=== PATIENT | male | born 1955 | race Caucasian/White ===

== ENCOUNTER 2019-06-09 11:19 | Outpatient (CLI) | payer MEDICARE, OTHER, SELFPAY ==
--- NOTE | ~2019-06-09 | XR_ITS ---
EXAMINATION: XR chest 2V DATE: 06/09/2019 11:46 INDICATION: Shortness of breath and cough. TECHNIQUE: Frontal and lateral views of the chest were obtained on 3 radiographs. COMPARISON: Chest 2 views 05/10/2018, chest CT 02/10/2019 FINDINGS: There is mild atelectasis in the lower lung zones. No pleural effusion or pneumothorax. The heart size is normal. There are chronic compression fractures of T4 and T5. There is a chronic burst fracture of T7. IMPRESSION: 1. Mild atelectasis in the lower lung zones. Reviewed, dictated and finalized at location A.
[2019-06-09 11:31] LABS: Basophils Absolute Auto 0.02 K/mm3 (0.00-0.10); Basophils Percent Auto 0.4 % (0.0-1.0); Eosinophils Absolute Auto 0.01 K/mm3 (0.02-0.50); Eosinophils Percent Auto 0.2 % (1.0-6.0); Hematocrit 45.2 % (37.0-46.0); Hemoglobin 15.8 g/dL (12.4-15.3); Immature Granulocyte Absolute 0.03 K/mm3 (0.00-0.00); Immature Granulocyte Percent A 0.6 % (0.0-0.0); Lymphocytes Absolute Auto 1.02 K/mm3 (1.10-4.50); Lymphocytes Percent Auto 20.2 % (18.0-42.0); Mean Corpuscular Hemoglobin 34.3 pg (27.0-31.0); Mean Platelet Volume 9.4 fl (8.7-11.0); Monocytes Absolute Auto 0.51 K/mm3 (0.10-0.90); Monocytes Percent Auto 10.1 % (2.0-11.0); Neutrophils Absolute Auto 3.5 K/mm3 (1.7-7.2); Neutrophils Percent Auto 68.5 % (50.0-70.0); Platelet Count Result 215 K/mm3 (150-420); Red Blood Count 4.61 M/mm3 (4.70-6.10); Red Cell Distribution Width 11.2 % (11.6-14.4)
[2019-06-09 11:54] LABS: Alanine Aminotransferase 79 U/L (16-63); Albumin Level 3.7 g/dL (3.4-5.0); Alkaline Phosphatase 63 U/L (46-116); Anion Gap 12.9 mmol/L (7-16); Aspartate Amino Transferase 42 U/L (15-37); Bilirubin,Total 0.5 mg/dL (0.00-1.00); Blood Urea Nitrogen 9 mg/dL (7-18); Calcium 8.6 mg/dL (8.5-10.1); Carbon Dioxide 27 mmol/L (21-32); Chloride 103 mmol/L (98-108); Estimated Glomerular Filt Rate > 60; Glucose 102 mg/dL (70-99); Osmolality Calculated 286 mOsm/kg (285-295); Potassium 3.9 mmol/L (3.5-5.1); Sodium 139 mmol/L (136-145); Total Protein 7.1 g/dL (6.4-8.2)
== END 2019-06-09 11:20 | disposition home or self-care (01) ==
PROVIDERS: PCP Internal Medicine; Visit Provider Internal Medicine
DX: J44.1 Chronic obstructive pulmonary disease with (acute) exacerbation (principal)
CPT/HCPCS: 36415; 71046; 80053; 85025

== ENCOUNTER 2019-11-28 00:32 | Outpatient (CLI) | payer MEDICARE, OTHER, SELFPAY ==
[2019-11-28 19:29] LABS: SARS-CoV-2 RNA PCR Negative
== END 2019-11-28 00:33 | disposition home or self-care (01) ==
LOC: ANHCOVIDDT 00:32
PROVIDERS: PCP Internal Medicine; Visit Provider Internal Medicine Gastroenterology
DX: Z01.812 Encounter for preprocedural laboratory examination (principal); Z20.828 Contact with and (suspected) exposure to other viral communicable diseases
CPT/HCPCS: 87635; C9803; U0003

== ENCOUNTER 2019-12-01 00:55 | Day surgery (SDC) | payer MEDICARE, OTHER, SELFPAY ==
[2019-11-20 13:40] VITALS: BMI 32.8
[2019-12-01 07:20] VITALS: BP 111/78; PULSE 73; RESP 18; TEMP 36.1; O2SAT 94; BMI 33.7
[2019-12-01] MEDS: LACTATED RINGERS 1,000 ML 150 ML IV CONT (07:33)
--- NOTE | 2019-12-01 08:10 | WPDGICN ---
Assessment and Plan Assessment and plan (1) Family history of colon cancer in father: Code(s): Z80.0 - Family history of malignant neoplasm of digestive organs Status: Acute Assessment and Plan: Because of family history of colon cancer as well as his own personal history of colon polyps surveillance colonoscopy is recommended now it at 5 year intervals in the future. High-fiber diet is advised. Further recommendations may be given after endoscopy. (2) History of colon polyps: Code(s): Z86.010 - Personal history of colonic polyps Status: Acute GI Consult Note Consult date/time: 12/01/19 08:10 HPI: Raz Gomez is a 64 year old male Presents for surveillance colonoscopy. He states his current weight appetite bowel movements are normal. He denies abdominal pain is had no blood in his stools. His family history is significant his father with colon cancer. Patient self is had colon polyps in the past. He has had no recent difficulties. His weight is stable. Review of Systems Review of Systems: All systems reviewed & are unremarkable except as noted in HPI and below Meds Home Medications and Allergies Home Medications Medication Instructions Recorded Confirmed Type albuterol sulfate 2 puff INHALATION BID 11/20/19 11/20/19 History carvedilol 6.25 mg PO BID 11/20/19 11/20/19 History ltxytgoqoyf-zntfgdavg-kzvspkrr 1 inh INHALATION DAILY 11/20/19 11/20/19 History [Trelegy Ellipta] rosuvastatin 40 mg PO DAILY 11/20/19 11/20/19 History tiotropium bromide [Spiriva with 18 mcg INHALATION DAILY 11/20/19 12/01/19 History HandiHaler] Allergies Allergy/AdvReac Type Severity Reaction Status Date / Time No Known Allergies Allergy Unknown Unverified 12/01/19 07:18 Vital Signs Vital Signs - 24 hr 12/01/19 07:20 Temperature 97 F L Pulse Rate 73 Respiratory Rate 18 Blood Pressure 111/78 Pulse Oximetry 94 Exam Narrative: Exam Narrative: Physical exam reveals patient to be alert. Vital signs stable. HEENT exam unremarkable. Lungs are clear to auscultation and percussion. Heart is without murmur or extra sounds. Abdominal exam reveals multiple scars. She has ventral hernia palpable. Extremities are without clubbing cyanosis or edema. Digital external rectal exam normal.
--- NOTE | 2019-12-01 08:25 | WPDANESEPPF ---
Anes - Initial Pre Proc Eval Procedure: Operation Date: 12/01/19 08:30 Proposed Procedures p Screening Colonoscopy - Stefan Ceballos MD Date/Time: 12/01/19 08:25 Surgeon: Stefan Ceballos MD Pre Op Diagnosis: Hx Colon Polyps/ Fam Hx Colon Ca Patient Data Age: 64 Gender: M Height: 6 ft 4 in Weight: 125.7 kg Last Vital Signs Temp 97 F L 12/01/19 07:20 Pulse 73 12/01/19 07:20 Resp 18 12/01/19 07:20 BP 111/78 12/01/19 07:20 Pulse Ox 94 12/01/19 07:20 Allergies Allergy/AdvReac Type Severity Reaction Status Date / Time No Known Allergies Allergy Unknown Unverified 12/01/19 07:18 Home Medications Medication Instructions Recorded Confirmed Type albuterol sulfate 2 puff INHALATION BID 11/20/19 11/20/19 History carvedilol 6.25 mg PO BID 11/20/19 11/20/19 History maxcilccbzc-xhvlnecal-rjpbowtx 1 inh INHALATION DAILY 11/20/19 11/20/19 History [Trelegy Ellipta] rosuvastatin 40 mg PO DAILY 11/20/19 11/20/19 History tiotropium bromide [Spiriva with 18 mcg INHALATION DAILY 11/20/19 12/01/19 History HandiHaler] Patient hx anesthesia problems: none Family hx anesthesia problems: none PMFSH Past Medical History Medical History (Updated 12/01/19 @ 08:25 by Tristen Aguilar MD) CAD (coronary artery disease) had cardiac cath that revealed blockages; managed with medications no stents COPD (chronic obstructive pulmonary disease) Hyperlipidemia Obesity Anes - Eval Final PreProcedure Day of Procedure 12/01/19 08:25 Patient weight: obese Heart: regular rate and rhythm Lungs: clear to auscultation Airway: Mallampati scale class II Neurological: alert and oriented Last oral intake: >/= 8 hours ASA classification: III Emergent: no Anesthetic plan: proceed Anesthesia type and monitoring: general GIVS and standard monitoring Informed Consent: The patient's anesthetic plan and its attendant risks and benefits were discussed with the patient/family/POA. Questions were solicited and answers provided to the satisfaction of the patient/family/POA.
[2019-12-01 09:04] VITALS: BP 91/67; PULSE 62; RESP 16; O2SAT 97
[2019-12-01 09:14] VITALS: BP 101/65; PULSE 59; RESP 18; O2SAT 98
[2019-12-01 09:24] VITALS: BP 100/71; PULSE 60; RESP 20; O2SAT 98
== END 2019-12-01 09:39 | disposition home or self-care (01) ==
PROVIDERS: PCP Internal Medicine; Visit Provider Internal Medicine Gastroenterology
PROC: 0DJD8ZZ Inspection of Lower Intestinal Tract, Via Natural or Artificial Opening Endoscopic (ICD-10-PCS; CPT 45378; principal; 2019-12-01 08:30)
DX: Z12.11 Encounter for screening for malignant neoplasm of colon (principal); D12.3 Benign neoplasm of transverse colon; K64.8 Other hemorrhoids; Z80.0 Family history of malignant neoplasm of digestive organs
CPT/HCPCS: 45385; 88305; J2704; J7120

== ENCOUNTER 2020-03-30 16:22 | Outpatient (CLI) | payer MEDICARE, SELFPAY ==
[2020-03-30 17:25] LABS: SARS-CoV-2 Ag Negative (Negative)
== END 2020-03-30 16:23 | disposition home or self-care (01) ==
LOC: CHSLAB 16:30
PROVIDERS: PCP Internal Medicine; Visit Provider Internal Medicine
DX: Z20.828 Contact with and (suspected) exposure to other viral communicable diseases (principal)
CPT/HCPCS: 87426

== ENCOUNTER 2020-12-23 08:44 | Outpatient (CLI) | payer MEDICARE, OTHER, SELFPAY ==
--- NOTE | ~2020-12-23 | CT_ITS ---
EXAMINATION: CT lung screening DATE: 12/23/2020 09:19 INDICATION: Personal history of tobacco dependence TECHNIQUE: Computed tomography (CT) of the chest was performed without intravenous contrast. The dose -length product was 395.10 mGy-cm. Automated exposure control and iterative reconstruction technique were employed. COMPARISON: CT dated 02/10/2019 FINDINGS: There are nonenlarged mediastinal lymph nodes, likely reactive. There is atherosclerosis of the aorta and coronary arteries. Heart size is normal. No significant pleural or pericardial effusio n. There is mild lower lobe bronchiectasis. There are calcified granulomas in the lung parenchyma. Th ere is emphysema. There is a stable 3 mm left lower lobe nodule. There are stable chronic compression fractures of T4, T5 and T7. There is a stable 8 mm left lower lobe nodule, image 99. There is mucous plugging in the right lower lobe. IMPRESSION: 1. Lung-RADS category 2: Benign appearance or behavior. Continue annual screening with noncontrast lo w-dose chest CT in 12 months. Reviewed, dictated and finalized at location A. IMPRESSION: 1. Lung-RADS category 2: Benign appearance or behavior. Continue annual screeni ng with noncontrast low-dose chest CT in 12 months.
== END 2020-12-23 08:45 | disposition home or self-care (01) ==
LOC: CHSIMG 08:46
PROVIDERS: PCP Internal Medicine; Visit Provider Internal Medicine
DX: Z12.2 Encounter for screening for malignant neoplasm of respiratory organs (principal); Z87.891 Personal history of nicotine dependence
CPT/HCPCS: 71271

== ENCOUNTER 2022-02-07 12:47 | Outpatient (CLI) | payer MEDICARE, OTHER, SELFPAY ==
--- NOTE | ~2022-02-07 | US_ITS ---
EXAMINATION: US thyroid DATE: 02/07/2022 13:48 INDICATION: Hypothyroidism. TECHNIQUE: Multiple ultrasound images of the thyroid were obtained. COMPARISON: Chest CT 02/07/2022 FINDINGS: The right thyroid lobe measures 5.1 x 2.3 x 1.5 cm. The left thyroid lobe is absent. There is normal echotexture and echogenicity throughout the thyroid gland. No discrete nodules identified. Normal va scular flow is present. IMPRESSION: 1. Normal thyroid. Reviewed, dictated and finalized at location A. STANT STORE MANAGER IMPRESSION: 1. Normal thyroid.
--- NOTE | ~2022-02-07 | CT_ITS ---
EXAMINATION: CT lung screening DATE: 02/07/2022 13:13 INDICATION: Personal history of nicotine dependence, prior smoker with 40 pack year history TECHNIQUE: Computed tomography (CT) of the chest was performed without intravenous contrast. The dose -length product (DLP) was 370.99 mGy-cm. Automated exposure control and iterative reconstruction tech [employer] were employed. COMPARISON: 12/23/2020 FINDINGS: There is moderate emphysema. There is a 4 mm nodule of the left upper lobe on image 39 not definitely identified on the comparison examination. There are stable nodules measuring 7 mm and 4 mm in the left lower lobe. There are mild atelectasis of the right lower lobe. Areas of chronic bronchi al wall thickening and mucous plugging are also noted in the right lower lobe. No pleural effusion or pneumothorax. No pathologically enlarged thoracic lymph nodes are identified. The heart size is norm al. Calcified coronary artery atherosclerosis is noted. Chronic compression fractures of T4, T5, and T7 are present without significant change. IMPRESSION: 1. Lung-RADS category 3: Probably benign. Followup with noncontrast low-dose chest CT in 6 months is recommended. Reviewed, dictated and finalized at location B. NESS ANALYTICS ANALYST IMPRESSION: 1. Lung-RADS category 3: Probably benign. Followup with noncontrast low-dose ch est CT in 6 months is recommended.
== END 2022-02-07 12:48 | disposition home or self-care (01) ==
LOC: CHSIMG 12:49
PROVIDERS: PCP Internal Medicine; Visit Provider Internal Medicine
DX: Z12.2 Encounter for screening for malignant neoplasm of respiratory organs (principal); Z87.891 Personal history of nicotine dependence; E03.9 Hypothyroidism, unspecified
CPT/HCPCS: 71271; 76536

== ENCOUNTER 2022-04-13 14:11 | Inpatient (IN) | payer MEDICARE, OTHER, SELFPAY ==
[2022-04-13] VITALS (34 sets, daily range): BP systolic 91–137; BP diastolic 64–95; PULSE 76–216; RESP 11–34; TEMP 36.4–36.9; O2SAT 97–100; BMI 39.6
--- NOTE | ~2022-04-13 | CT_ITS ---
EXAMINATION: CTA chest PE protocol DATE: 04/13/2022 16:02 INDICATION: Left arm and chest pain, tachycardia, shortness of breath TECHNIQUE: Computed tomography angiography (CTA) of the chest was performed with 100 mL Omnipaque-350 intravenous contrast timed to evaluate the pulmonary arteries. Coronal maximum intensity projection 3D-reconstructions were created by the technologist. Automated exposure control and iterative reconst ruction technique were employed. Exam dose: 970.17 mGy-cm total exam DLP. COMPARISON: 02/07/2022 CT lung screening FINDINGS: There is diagnostic contrast enhancement of the pulmonary arteries and no evidence of pulmo nary embolism. No thoracic aortic aneurysm is noted. No hilar or mediastinal mass lesion or lymphadenopathy. Normal heart size. No pericardial or pleural effusion. The left lobe of the thyroid gland appears to be absent. The right lobe appears unremarkable. Foramen of Morgagni defect containing liver, stomach and fat. There is discoid atelectasis and/or scarring at the lung bases, most prominent at the right lower lob e. 3 mm and 7 mm left lower lobe pulmonary nodules. Moderate emphysematous change of the lungs. Mild compression fracture deformity of T4, moderate compression fracture deformity at T5 and more sev ere compression fracture deformity of T7. IMPRESSION: No evidence of pulmonary embolism Emphysema 7 and 3 mm left lower lobe lung nodules Compression fractures of thoracic spine Reviewed, dictated and finalized at [facility]. Reviewed, dictated and finalized at [facility]. BOSS
--- NOTE | 2022-04-13 14:14 | ED.GENADULT ---
HPI - General Adult General Chief complaint: Arrhythmia/Palpitations Stated complaint: svt Time Seen by Provider: 04/13/22 14:12 History of Present Illness HPI narrative: 66-year-old male with history of coronary disease, COPD high cholesterol obesity presenting the emergency department for evaluation of a rapid heart rate. Patient reports approximately 1.5 hours prior to arrival he was walking downstairs when he had onset of a rapid heart rate. Patient did call EMS for this. He admits that he has a rapid heart rate that appeared regular with a heart rate of 220. Upon arrival to emergency room and patient was converted back to normal sinus using a modified Valsalva. Patient reports that he did have a previous cardiac cath in August 2020 showing multiple areas of stenosis that they decided to manage medically. This was done at [facility]. Patient has last seen his nitrator operator on May 2021. Patient reports a family history of atrial fibrillation denies any prior history of A. fib or SVT per Related Data Home Medications Medication Instructions Recorded Confirmed albuterol sulfate 90 mcg/actuation 2 puff inhalation BID 11/20/19 11/20/19 aerosol inhaler carvedilol 6.25 mg tablet 6.25 mg PO BID 11/20/19 11/20/19 fluticasone fur. 100 mcg-umeclid 1 inh inhalation DAILY 11/20/19 11/20/19 62.5 mcg-vilant 25 mcg inhalat.powder (Trelegy Ellipta) rosuvastatin 40 mg tablet 40 mg PO DAILY 11/20/19 11/20/19 tiotropium bromide 18 mcg capsule 18 mcg inhalation DAILY 11/20/19 12/01/19 with inhalation device (Spiriva with HandiHaler) Allergies Allergy/AdvReac Type Severity Reaction Status Date / Time No Known Allergies Allergy Unknown Unverified 12/01/19 07:18 Review of Systems Review of Systems: CONSTITUTIONAL: Denies fever, chills, or sweats. EYES: Denies visual changes, redness, or discharge. ENT: Denies rhinorrhea, congestion, sore throat, or otalgia. CARDIOVASCULAR: See HPI RESPIRATORY: Denies cough or dyspnea. GASTROINTESTINAL: Denies abdominal pain, nausea, vomiting, or diarrhea. GENITOURINARY: Denies dysuria or hematuria. SKIN: Denies rash or itching. MUSCULOSKELETAL: Denies back pain, joint pain, or myalgia. NEUROLOGIC: Denies headache, numbness, or weakness. [facility] Past Medical History Medical History (Updated 12/01/19 @ 08:25 by Tristen Aguilar MD) CAD (coronary artery disease) had cardiac cath that revealed blockages; managed with medications no stents COPD (chronic obstructive pulmonary disease) Hyperlipidemia Obesity Exam Narrative: APPEARANCE: Well appearing, no pain, no distress, well-nourished. HEAD: normocephalic, atraumatic. EYES: PERRLA/EOMI, conjunctivae clear. NOSE: Normal no drainage EARS:TMS clear with good light reflex. THROAT: Pharynx clear, no exudate. NECK: Supple. No adenopathy, no masses. RESPIRATORY: Airway patent, respirations nonlabored. Clear to auscultation bilaterally, no rales, rhonchi, wheezing. CARDIOVASCULAR: SVT and sinus tachycardia ABDOMINAL: Soft, nontender, nondistended, normal bowel sounds MUSCULOSKELETAL: Moves all extremities. Strength/ROM intact, No edema, No calf tenderness. NEURO: Alert. Cranial nerves II through XII intact. Grossly intact SKIN: Warm, dry. Normal Color Course Course Emergency Course: Upon arrival to the ED patient's heart rate was 220 but this was converted to sinus tachycardia using modified Valsalva. Patient was treated with his home dose of Coreg and 2 L of normal saline. Initial repeat EKGs showed sinus tachycardia. Patient's initial troponin was high end of normal. Patient's 3-hour troponin was further elevated at 0.319. 30 EKG was read as A. fib. Patient is to be a very regular atrial tachycardia but no visible P waves. Dr. Patel with cardiology was consulted due to the patient having a bump troponin with known coronary artery disease. To control the patient's rhythm it was decided to start the patient on amiodarone. Patient
--- NOTE | 2022-04-13 14:18 | ECG_ITS ---
Measurements Intervals [place] Rate: 116 P: 40 [place]: 167 QRS: 66 QRSD: 95 T: 29 QT: 300 QTc: 418 Interpretive Statements SINUS TACHYCARDIA BORDERLINE ST-T WAVE ABNORMALITY- ANTEROLAT/INF LEADS BASELINE ARTIFACT- I, II, III ,AVR, AVL, AVF ABNORMAL ECG COMPARED TO ECG 02/10/2019 12:27:[address] NOW PRESENT [address] (T WAVE) DEVIATION NOW PRESENT Electronically Signed On 04-13-2022 14:41:54 CLOTH ROLL WINDER by Toney Patel D.O.
--- NOTE | 2022-04-13 14:21 | PC.NURSE ---
HR decreased after vagal maneuvers by Dr Chauhan
[2022-04-13 14:42] LABS: Basophils Percent Auto 0.5 % (0.2-1.2); Eosinophils Absolute Auto 0.2 K/mm3 (0-0.3); Eosinophils Percent Auto 2.2 % (0-4.4); Hematocrit 43.1 % (42.0-52.0); Immature Granulocyte Absolute 0.05 K/mm3 (0.00-0.031); Immature Granulocyte Percent A 0.6 % (0-0.5); Lymphocytes Absolute Auto 1.28 K/mm3 (0.9-3.2); Lymphocytes Percent Auto 15.6 % (18.3-44.2); Mean Corpuscular HGB Conc 32.5 g/dl (32-36); Mean Corpuscular Hemoglobin 33.2 pg (26-34); Mean Corpuscular Volume 102.1 fl (80-100); Monocytes Absolute Auto 0.5 K/mm3 (0.1-0.6); Monocytes Percent Auto 6.2 % (2.6-8.5); Neutrophils Absolute Auto 6.2 K/mm3 (1.3-6.7); Neutrophils Percent Auto 74.9 % (45.5-73.1); Platelet Count Result 262 k/mm3 (150-375); Red Blood Count 4.22 M/mm3 (4.6-6.20); Red Cell Distribution Width 12.1 % (11.5-14.5); White Blood Count 8.2 K/mm3 (4.5-10.0)
[2022-04-13 14:51] LABS: Alanine Aminotransferase 25 U/L (6-50); Alkaline Phosphatase 60 U/L (38-126); Anion Gap 5 mmol/L (8-16); Aspartate Amino Transferase 28 U/L (17-59); Bilirubin,Total 0.6 mg/dL (0.2-1.3); Blood Urea Nitrogen 10 mg/dL (9-20); Calcium 6.4 mg/dL (8.4-10.2); Carbon Dioxide 20 mmol/L (22-30); Chloride 109 mmol/L (98-107); Estimated CRCL calculation 102 ml/min; Estimated Glomerular Filt Rate > 60; Glucose 103 mg/dL (65-110); Potassium 3.4 mmol/L (3.4-5.0); Sodium 134 mmol/L (137-145)
[2022-04-13 14:53] LABS: INR 1.2; Prothrombin Time 14.3 Seconds (11.1-14.7)
--- NOTE | 2022-04-13 14:59 | ECG_ITS ---
Measurements Intervals [place] Rate: 119 P: 36 [place]: 176 QRS: 60 QRSD: 101 T: 30 QT: 314 QTc: 442 Interpretive Statements SINUS TACHYCARDIA VENTRICULAR PREMATURE COMPLEX BORDERLINE ST-T WAVE ABNORMALITY- ANTEROLAT/INF LEADS ABNORMAL ECG COMPARED TO ECG 04/13/2022 14:08:32 NO SIGNIFICANT CHANGES Electronically Signed On 04-13-2022 15:37:34 MANAGEMENT REP by Toney Patel D.O.
[2022-04-13 15:02] LABS: Troponin I 0.027 ng/mL (0.000-0.034)
[2022-04-13] MEDS: SODIUM CHLORIDE 0.9% IV 1,000 ML 999 ML IV CONT ×2 (17:22)
[2022-04-13] MEDS: carvediloL 6.25 MG TABLET PO (17:40)
[2022-04-13 17:48] LABS: Troponin I 0.319 ng/mL (0.000-0.034)
--- NOTE | 2022-04-13 17:59 | ECG_ITS ---
Measurements Intervals [place] Rate: 118 P: [place]: 0 QRS: 59 QRSD: 96 T: 25 QT: 292 QTc: 410 Interpretive Statements ATYPICAL ATRIAL FLUTTER WITH TWO-TO-ONE CONDUCTION NONSPECIFIC ST SEGMENT CHANGES ABNORMAL ECG COMPARED TO ECG 04/13/2022 14:22:05 A[address] NOW PRESENT ST (T WAVE) DEVIATION NOW PRESENT Electronically Signed On 05-05-2022 14:25:54 PYROTECHNICIAN by Igor Escalante M.D.
--- NOTE | 2022-04-13 18:30 | PM.IMHP ---
H&P: HPI History of Present Illness Date/Time: 04/13/22 18:30 Chief Complaint: Increased heart rate. Narrative: This is a very pleasant 66-year-old male with coronary artery disease noted on cardiac cath in August 2020 treated medically, dyslipidemia, and COPD who presented to the ED via EMS from home for evaluation for increased heart rate. He felt fine when he got up this morning and went downstairs to fetch his coat as he was going out to run errands. He felt winded when he got to the top of the stairs which is not necessarily unusual for him however it took him longer to recover and when he sat down he felt his heart racing. The shortness of breath improved however the palpitations continued and he also reports feeling discomfort in the arm, elbow, and jaw. He denies syncope, near syncope, sweats, nausea, and vomiting. EMS was summoned however it took them over 90 minutes to get him to the hospital. On arrival to ED it looks like he was in SVT with a rate over 200 which improved with modified Valsalva maneuver. His heart rate remains in the low 100s and looks like he is in an atrial tachycardia at this time. He feels much better and is not having any chest discomfort or shortness of breath. His troponins have come back progressively more elevated and he is being admitted in this setting for further evaluation. He states compliance with his home medications and has not missed any doses. He drinks 4 to 5 cups of caffeinated coffee a day but that is not new. He has a handful of alcoholic beverages a week but nothing in excess. He has no known history of thyroid disease. No history or concerns for sleep apnea. Review of Systems Review of Systems: Twelve systems were reviewed and are negative except for as per HPI. [facility] Past Medical History Medical History (Updated 04/13/22 @ 22:32 by Iris Mao PA-C) Chronic obstructive pulmonary disease Coronary artery disease Cardiac catheterization August [address] Perez reportedly showed nonobstructing coronary disease treated medically. Hyperlipidemia Obesity Surgical History Surgical History History of exploratory laparotomy As an infant due to what sounds like infected umbilicus. History of hernia repair History of right knee surgery Removal of foreign body and clean out. Family History Family History Father Hx of CABG Colon cancer CHF (congestive heart failure) Mother Insulin overdose CHF (congestive heart failure) Diabetes mellitus Social History Social History (Updated 04/13/22 @ 22:31 by Iris Mao PA-C) Social History: Surrogate medical decision maker: Code status: Full code. Smoking status: Former smoker Alcohol intake: current Drinks per week: 2 Substance use type: marijuana Lack of Transportation: No Lack of Food: Never True Current Housing: I Have Housing Concerned About Future Housing: No Difficulty Paying Gas/Electric Bills: No Difficulty Paying for Meds: No Currently Unemployed: No Education: Decline to Answer Difficulty w/ Childcare or Family Care: No Spiritual care concerns: No Meds Home Medications and Allergies Home Medications Medication Instructions Recorded Confirmed Type albuterol sulfate 90 mcg/actuation 2 puff inhalation BID 11/20/19 04/13/22 History aerosol inhaler carvedilol 6.25 mg tablet 6.25 mg PO BID 11/20/19 04/13/22 History fluticasone fur. 100 mcg-umeclid 1 inh inhalation DAILY 11/20/19 04/13/22 History 62.5 mcg-vilant 25 mcg inhalat.powder (Trelegy Ellipta) rosuvastatin 40 mg tablet 40 mg PO HS 11/20/19 04/13/22 History aspirin 81 mg tablet,delayed 81 mg PO DAILY 04/13/22 04/13/22 History release cetirizine 10 mg tablet (Zyrtec) 20 mg PO HS 04/13/22 04/13/22 History ibuprofen-diphenhydramine citrate 1 cap PO HS 04/13/22 04/13/22 History 200 mg-3
[2022-04-13] MEDS: AMIODARONE 150 MG/D5W 100 ML 150 MG/100 ML BAG 600 MG IV CONT (18:36)
[2022-04-13] MEDS: AMIODARONE 360 MG/D5W 200 ML 360 MG/200 ML BAG 33.33 MG IV CONT (18:37)
--- NOTE | 2022-04-13 18:57 | PM.CNCAR ---
Assessment and Plan Assessment and plan (1) PSVT (paroxysmal supraventricular tachycardia): Code(s): I47.1 - Supraventricular tachycardia Status: Acute Assessment and Plan: First episode. Vagal maneuver changed rhythm to either sinus or ectopic atrial tachycardia. Check TSH, Mag. Replete potassium. Amiodarone started, will continue for 24 hours. (2) Hypertension: Code(s): I10 - Essential (primary) hypertension Status: Acute Assessment and Plan: Stable. (3) Hyperlipidemia: Code(s): E78.5 - Hyperlipidemia, unspecified Status: Acute Assessment and Plan: On Rosuvastatin. (4) CAD (coronary artery disease): Code(s): I25.10 - Atherosclerotic heart disease of [place] coronary artery without angina pectoris Status: Acute Assessment and Plan: Obtain cath report from [facility] in [place], around 2019. (5) Elevated troponin: Code(s): R77.8 - Other specified abnormalities of plasma proteins Status: Acute Assessment and Plan: This could be due to demand ischemia related to rapid SVT. Give Lovenox 1 mg/kg SQ Q12 hrs and aspirin daily, on Carvedilol. Trend troponin to peak. Obtain echo. History of Present Illness History of Present Illness Consult date/time: 04/13/22 18:57 Reason For Visit: Atrial Tachycardia,Elevated Trop Narrative: 66 yr old man presents to ER by EMS with palpitations. He has a history of CAD, hypertension, dyslipidemia, COPD, former smoking. Reports he was at home and went back upstairs and sat down, then felt rapid heart rate, chest pressure and sob. He called EMS and was brought to ER. He was in rapid SVT at 220 bpm. Valsalva maneuver performed in ER and this restored what appears to be sinus or ectopic atrial tachycardia at 120 bpm. He is in this rhythm currently. No longer having chest pain or sob. Troponin went up to 0.3. Amiodarone drip started to prevent recurrence of SVT and to restore sinus rhythm from ectopic atrial tachycardia. He normally can walk up to 1/2 block and limited by SAUNDERS due to COPD. States he had left heart cath at [facility] in [place] around 2019 and was found to have a distal 80% stenosis, 60% and 40% stenosis. The 80% stenosis was deemed to be very distal and it was decided to not intervene and just treat medically. Review of Systems Review of Systems: All systems reviewed & are unremarkable except as noted in HPI and below Constitutional: Constitutional: Reports as per HPI, Denies chills and Denies fever(s) Cardiovascular: Cardiovascular: Reports as per HPI, Reports chest pain, Reports irregular heart rhythm and Denies leg edema Respiratory: Respiratory: Reports as per HPI, Reports dyspnea and Reports dyspnea on exertion Gastrointestinal: Gastrointestinal: Reports as per HPI and Denies abdominal pain Genitourinary: Genitourinary: Reports as per HPI and Denies dysuria Musculoskeletal: Musculoskeletal: Reports as per HPI Neurologic: Reports as per HPI, Denies dizziness and Denies syncope [facility] Past Medical History Medical History (Updated 04/13/22 @ 19:04 by Toney Patel DO) CAD (coronary artery disease) had cardiac cath that revealed blockages; managed with medications no stents COPD (chronic obstructive pulmonary disease) Hyperlipidemia Obesity Meds Home Medications and Allergies Home Medications Medication Instructions Recorded Confirmed Type albuterol sulfate 90 mcg/actuation 2 puff inhalation BID 11/20/19 11/20/19 History aerosol inhaler carvedilol 6.25 mg tablet 6.25 mg PO BID 11/20/19 11/20/19 History fluticasone fur. 100 mcg-umeclid 1 inh inhalation DAILY 11/20/19 11/20/19 History 62.5 mcg-vilant 25 mcg inhalat.powder (Trelegy Ellipta) rosuvastatin 40 mg tablet 40 mg PO DAILY 11/20/19 11/20/19 History tiotropium bromide 18 mcg capsule 18 mcg inhalation DAILY 11/20/19 12/01/19 History with inhalation device (Spiriva
[2022-04-13 19:20] LABS: Influenza A QL RT-PCR Negative (Negative); Influenza B QL RT-PCR Negative (Negative); RSV RNA, RT-PCR Negative (Negative); SARS-CoV-2 RNA PCR Negative
[2022-04-13] MEDS: POTASSIUM CHLORIDE 20 MEQ TABLET 40 MEQ PO (19:55)
--- NOTE | 2022-04-13 20:12 | ADMGEN ---
This patient, Raz Gomez, was admitted to IMU Room 201-01 at 2011. Patient/family oriented to hospital policies and general routines including ID bracelet, bed and alarms, visiting hours, pain management, procedures, bathroom and other care routines, personal items, smoking policy, room service/diet, and visiting hours. Information on how to activate the Rapid Response Team has been discussed. Patient/Family are encouraged to report perceived risks to care and to ask questions if they do not understand what they are told or what they should do.
[2022-04-13] MEDS: CALCIUM GLUC 1,000 MG/NS 50 ML 1,000 MG/50 ML BAG 100 MG IVPB (20:47)
[2022-04-13] MEDS: ENOXAPARIN 80 MG/0.8 ML SYRINGE 135 MG SUB-Q (20:48)
[2022-04-13 21:35] LABS: Anion Gap 8 mmol/L (8-16); Blood Urea Nitrogen 12 mg/dL (9-20); Calcium 8.9 mg/dL (8.4-10.2); Carbon Dioxide 28 mmol/L (22-30); Chloride 102 mmol/L (98-107); Estimated CRCL calculation 110 ml/min; Estimated Glomerular Filt Rate > 60; Glucose 152 mg/dL (65-110); Potassium 3.9 mmol/L (3.4-5.0); Sodium 138 mmol/L (137-145)
[2022-04-13 21:36] LABS: Magnesium 2.1 mg/dL (1.6-2.3)
[2022-04-13 21:50] LABS: Troponin I 0.617 ng/mL (0.000-0.034)
[2022-04-13 22:25] LABS: Appearance Urine Clear (Clear); Bilirubin Urine Negative (Negative); Blood Urine Negative (Negative); Color Urine Yellow (Yellow); Glucose Urine UA Negative (Negative); Ketones Urine Negative (Negative); Leukocyte Esterase Ur Negative LEU/UL (Negative); Nitrate Urine Negative (Negative); Protein Urine Negative (Negative); Specific Grav Ur <= 1.005 (1.001-1.035); Urobilinogen Urine 0.2 mg/dL (<2.0); pH Urine 5.5 (5.0-9.0)
[2022-04-13 22:33] LABS: Mucus Urine Rare /lpf; RBC Urine 0-2 /hpf (0-2); Squamous Epithelial Cell Urine Rare /hpf (Few); WBC Urine 0-3 /hpf
[2022-04-13 22:38] LABS: Add Urine Microscopic? NO
[2022-04-14] VITALS (25 sets, daily range): BP systolic 102–132; BP diastolic 65–82; PULSE 55–120; RESP 14–22; TEMP 35.8–36.4; O2SAT 93–99
--- NOTE | 2022-04-14 | ECHO_ITS ---
Patient Info Name: Raz Gomez Age: 66 years : 1955 Gender: Male Ht: 74 in Wt: 297 lbs BSA: 2.70 m2 HR: 76 bpm BP: 114 / 73 mmHg Heart Rhythm: Atrial Fibrillation Technical Quality: Poor Exam Date: 04/14/2022 7:38 AM Exam Location: [facility] Patient Status: Inpatient Admit Date: 04/13/2022 Staff Ordering Physician: Toney Patel DO Sales Agent Financial Report Service: Lorie Edward RDCS Attending Provider: Igor Antonio MD Referring Physician: Jorge MOORE; Exam Type: CA echo dop color flow w con Study Info Indications - elevated troponin R07.9 - Chest pain, unspecified Contrast/Agitated Saline Contrast/Ag. Saline: Definity Amount: 3.00 ml Administered By: Lorie Edward RDCS Existing IV Access: Yes IV Access Condition: patent with no signs of infiltration Summary 1. Technically suboptimal study due to poor sonographic images. 2. Left ventricular chamber dimension is normal. 3. Definity contrast administered improved wall motion interpretation. 4. Left ventricular systolic function is normal, estimated at 55-60%. 5. The left ventricular diastolic function is normal. 6. E/e' 8 is minimally elevated. 7. There is mild aortic valve sclerosis. 8. No pulmonary hypertension, estimated pulmonary arterial systolic pressure is 14 mmHg. 9. The aortic root size at the sinus of Valsalva is moderately dilated at 5.0 cm. Prox ascending aorta is normal at 3.5 cm.. 10. Dilated inferior vena cava with >50% collapse upon inspiration consistent with normal right atrial pressure, 10 mmHg. Left Ventricle E/e' 8 is minimally elevated. Definity contrast administered improved wall motion interpretation. Left ventricular chamber dimension is normal. Left ventricular systolic function is normal, estimated at 55-60%. The left ventricular diastolic function is normal. Technically suboptimal study due to poor sonographic images. Right Ventricle Right ventricular systolic function is normal and with normal TAPSE 1.7 cm. Right ventricular chamber dimension is normal. Left Atria Left atrial chamber dimension is normal. Right Atria Right atrial chamber dimension is normal. Aortic Valve The aortic valve is trileaflet. There is mild aortic valve sclerosis. There is no aortic valve stenosis. There is no aortic valve regurgitation. Pulmonic Valve There is no pulmonic regurgitation. Mitral Valve There is no mitral valve stenosis. There is no mitral valve regurgitation. Tricuspid Valve There is no tricuspid valve regurgitation. No pulmonary hypertension, estimated pulmonary arterial systolic pressure is 14 mmHg. Pericardium/Pleural There is no pericardial effusion. Inferior Vena Cava Dilated inferior vena cava with >50% collapse upon inspiration consistent with normal right atrial pressure, 10 mmHg. Aorta The aortic root size at the sinus of Valsalva is moderately dilated at 5.0 cm. Prox ascending aorta is normal at 3.5 cm.. Left Ventricular Outflow Tract Name Value Normal LVOT 2D LVOT Diameter 2.33 cm LVOT Doppler LVOT Peak Gradi
[2022-04-14] MEDS: ROSUVASTATIN 10 MG TABLET 40 MG PO ×2 (00:05→20:48)
[2022-04-14] MEDS: LORATADINE 10 MG TABLET 20 MG PO ×2 (00:06→20:48)
[2022-04-14] MEDS: carvediloL 6.25 MG TABLET PO ×3 (00:07→18:11)
[2022-04-14] MEDS: diphenhydrAMINE HCl CAP 25 MG CAPSULE PO ×2 (00:07→20:47)
[2022-04-14] MEDS: IBUPROFEN 200 MG TABLET PO ×2 (00:08→20:47)
[2022-04-14] MEDS: AMIODARONE 360 MG/D5W 200 ML 360 MG/200 ML BAG 16.67 MG IV CONT ×2 (00:29→13:23)
[2022-04-14 05:49] LABS: Anion Gap 2 mmol/L (8-16); Blood Urea Nitrogen 12 mg/dL (9-20); Calcium 8.4 mg/dL (8.4-10.2); Carbon Dioxide 27 mmol/L (22-30); Chloride 104 mmol/L (98-107); Estimated CRCL calculation 110 ml/min; Estimated Glomerular Filt Rate > 60; Glucose 93 mg/dL (65-110); Magnesium 2.1 mg/dL (1.6-2.3); Potassium 4.1 mmol/L (3.4-5.0); Sodium 133 mmol/L (137-145)
--- NOTE | 2022-04-14 06:40 | ECG_ITS ---
Measurements Intervals [place] Rate: 95 P: NV: 0 QRS: 56 QRSD: 105 T: 31 QT: 369 QTc: 466 Interpretive Statements ATRIAL FLUTTER/TACHYCARDIA EARLY PRECORDIAL R/S TRANSITION ABNORMAL ECG COMPARED TO ECG 04/13/2022 14:22:05 ATRIAL FLUTTER NOW PRESENT Electronically Signed On 04-14-2022 10:42:52 LABEL DRIER by Toney Patel D.O.
--- NOTE | 2022-04-14 08:00 | PM.PNCARD ---
Progress Note: A&P Assessment and Plan (1) PSVT (paroxysmal supraventricular tachycardia): Code(s): I47.1 - Supraventricular tachycardia Status: Acute Assessment and Plan: First episode. Vagal maneuver changed rhythm to either sinus or ectopic atrial tachycardia. Overnight, he went into atrial flutter then atrial fibrillation. [id number] 3. Electrolytes are OK. Mildly low potassium that is repleted. Mag is normal. Amiodarone started, will continue for 24 hours. Hopefully this restores sinus rhythm. Discussed anticoagulation. Will start Xarelto 20 mg in evening with meal. Check apea link and will need outpatient sleep study. (2) Hypertension: Code(s): I10 - Essential (primary) hypertension Status: Acute Assessment and Plan: Stable. (3) Hyperlipidemia: Code(s): E78.5 - Hyperlipidemia, unspecified Status: Acute Assessment and Plan: On Rosuvastatin. (4) CAD (coronary artery disease): Code(s): I25.10 - Atherosclerotic heart disease of [place] coronary artery without angina pectoris Status: Acute Assessment and Plan: Obtain cath report from [facility] in [place], around 2019. (5) Elevated troponin: Code(s): R77.8 - Other specified abnormalities of plasma proteins Status: Acute Assessment and Plan: This could be due to demand ischemia related to rapid SVT. Troponin peaking at 0.62. Stop Lovenox. Continue aspirin daily, Carvedilol and Rosuvastatin. Obtain echo. Subjective Date/time seen: 04/14/22 08:00 Interval history: Denies chest pain or sob. Exam Const: General: cooperative, healthy appearing, comfortable and obese Nutritional Appearance: obese Orientation/consciousness: oriented to person, oriented to place and oriented to time Resp: Auscultation: clear to auscultation bilaterally, no crackles, no rales, no rhonchi and no wheezes Cardio: Rate: regular rate Rhythm: abnormal rhythm Heart sounds: no murmurs Peripheral pulses: dorsalis pedis present Neuro: General: oriented to person, oriented to place and oriented to time Extrem: Right lower extremity: no edema Left lower extremity: no edema Objective Data Vital Signs Vital Signs: Vital Signs - 24 hr 04/13/22 14:17 04/13/22 14:20 04/13/22 14:36 Temperature 98.5 F Pulse Rate 216 H 116 H 216 H Respiratory Rate 34 H 21 H Blood Pressure 137/88 Pulse Oximetry 100 97 Oxygen Delivery 04/13/22 14:34 04/13/22 14:45 04/13/22 14:46 Temperature Pulse Rate 133 H 120 H 120 H Respiratory Rate 26 H 12 16 Blood Pressure 99/80 L Pulse Oximetry 97 97 97 Oxygen Delivery 04/13/22 15:00 04/13/22 15:01 04/13/22 15:02 Temperature Pulse Rate 120 H 120 H 120 H Respiratory Rate 21 H 13 15 Blood Pressure 100/77 Pulse Oximetry 98 99 98 Oxygen Delivery 04/13/22 15:15 04/13/22 15:16 04/13/22 15:17 Temperature Pulse Rate 121 H 121 H 121 H Respiratory Rate 17 13 18 Blood Pressure 91/72 L 122/64 Pulse Oximetry 98 97 97 Oxygen Delivery 04/13/22 17:40 04/13/22 18:36 04/13/22 18:37 Temperature Pulse Rate 120 H 105 H 120 H Respiratory Rate Blood Pressure 124/86 111/92 H Pulse Oximetry Oxygen Delivery 04/13/22 16:27 04/13/22 16:30 04/13/22 16:45 Temperature Pulse Rate 119 H 120 H 120 H Respiratory Rate 15 14 20 Blood Pressure Pulse Oximetry 100 98 99 Oxygen Delivery 04/13/22 17:08 04/13/22 17:23 04/13/22 17:30 Temperature Pulse Rate 120 H 119 H 121 H Respiratory Rate 24 H 30 H 20 Blood Pressure Pulse Oximetry 98 98 Oxygen Delivery 04/13/22 17:31 04/13/22 17:45 04/13/22 17:46 Temperature Pulse Rate 119 H Respiratory Rate 18 Blood Pressure 96/68 L 115/95 H Pulse Oximetry 98 99 100 Oxygen Delivery 04/13/22 18:00 04/13/22 18:01 04/13/22 18:16 Temperature Pulse Rate 117 H 115 H 92 Respiratory Rate 28 H 16 11 L Blood Pressure 118/90 109/85 P
[2022-04-14] MEDS: PERFLUTREN LIPID MICROSPHERES 1.5 ML VIAL DILUTED TO 10 ML TOTAL VOLUME IV PUSH (08:13)
--- NOTE | 2022-04-14 08:13 | IVDEFINITY ---
Prior to administration of IV Definity the patient was educated on the risks and benefits of the imaging enhancing agent including potential adverse side effects. The patient verbalized understanding. Allergies were verified. No exclusion criteria were identified and at least one of the following inclusion criteria were met: 1) physician request, 2) patient technically difficult to image (per the [place] [employer] guidelines of two or more segments not discernable within the apical view), or 3) questionable left ventricular function. ?
[2022-04-14] MEDS: ASPIRIN 81 MG ENTERIC TABLET PO (08:31)
[2022-04-14] MEDS: ALBUTEROL SULFATE (*SP) AEROSOL 1 PUFF 2 PUFF INHALATION ×2 (09:25→21:09)
--- NOTE | 2022-04-14 12:48 | PM.IMPN ---
Progress Note: A&P Assessment and Plan (1) Paroxysmal supraventricular tachycardia: Code(s): I47.1 - Supraventricular tachycardia Status: Acute Assessment and Plan: This is the 1st episode for this patient, modified Valsalva maneuver converted him to a sinus or ectopic atrial tachycardia. Potassium and calcium being replaced. TSH mildly I 5.3. Apnea link with possible sleep apnea. Need outpatient sleep study. Started on amiodarone drip. Noted underlying rhythm to be AFib with RVR. On Xarelto Coreg (2) Elevated troponin: Code(s): R77.8 - Other specified abnormalities of plasma proteins Status: Acute Assessment and Plan: May very well be related to prolonged SVT (at least 90 minutes). He has a history of nonobstructing coronary artery disease however. Catheterization report requested for review. Echocardiogram with EF 55-60% no pulmonary hypertension mild aortic valve sclerosis. Proximal ascending aorta 3.5 cm no other valvular abnormality noted. Started on Lovenox full dose Switched to Xarelto (3) Hypertension: Code(s): I10 - Essential (primary) hypertension Status: Acute Assessment and Plan: Blood pressures were reviewed and they are stable. Continue antihypertensives and monitor closely. (4) Hyperlipidemia: Code(s): E78.5 - Hyperlipidemia, unspecified Status: Acute Assessment and Plan: Continue rosuvastatin 40 mg daily. (5) Chronic obstructive pulmonary disease: Code(s): J44.9 - Chronic obstructive pulmonary disease, unspecified Status: Acute Assessment and Plan: No acute exacerbation. Continue maintenance inhalers. (6) Coronary artery disease: Code(s): I25.10 - Atherosclerotic heart disease of [place] coronary artery without angina pectoris Status: Acute Assessment and Plan: Continue aspirin, beta-karina, statin. (7) Lung nodule: Code(s): R91.1 - Solitary pulmonary nodule Status: Acute Assessment and Plan: 7 and 3 mm left lower lobe lung nodules noted on CT today. Given smoking history this needs to be followed. Subjective Date/time seen: 04/14/22 12:48 Interval history: This is a very pleasant 66-year-old male with coronary artery disease noted on cardiac cath in August 2020 treated medically, dyslipidemia, and COPD who presented to the ED via EMS from home for evaluation for increased heart rate. He felt fine when he got up this morning and went downstairs to fetch his coat as he was going out to run errands. He felt winded when he got to the top of the stairs which is not necessarily unusual for him however it took him longer to recover and when he sat down he felt his heart racing. The shortness of breath improved however the palpitations continued and he also reports feeling discomfort in the arm, elbow, and jaw. He denies syncope, near syncope, sweats, nausea, and vomiting. EMS was summoned however it took them over 90 minutes to get him to the hospital. On arrival to ED it looks like he was in SVT with a rate over 200 which improved with modified Valsalva maneuver. His heart rate remains in the low 100s and looks like he is in an atrial tachycardia at this time. He feels much better and is not having any chest discomfort or shortness of breath. His troponins have come back progressively more elevated and he is being admitted in this setting for further evaluation. He states compliance with his home medications and has not missed any doses. He drinks 4 to 5 cups of caffeinated coffee a day but that is not new.? He has a handful of alcoholic beverages a week but nothing in excess. He has no known history of thyroid disease. No history or concerns for sleep apnea. 04/14/2022: Feeling better. Telemetry reviewed. No chest pain. Denies any shortness of breath. ApneaLink performed last night. AHI 8.5 RI of 10.5 Review of Systems Review of Systems: All systems revie
[2022-04-14] MEDS: RIVAROXABAN 20 MG TABLET PO (18:11)
[2022-04-14] MEDS: AMIODARONE HCL 200 MG TABLET PO (18:11)
[2022-04-14] MEDS: FLUTICASONE/UMECLIDIN/VILANTER 100-62.5-25 MCG ELLIPTA 1 PUFF INHALATION (18:15)
[2022-04-14 22:25] LABS: Total Triiodothyronine (T3) 1.06 NG/ML (0.97-1.69)
[2022-04-15] VITALS (9 sets, daily range): BP systolic 119; BP diastolic 73–80; PULSE 76–120; RESP 18–20; TEMP 35.8–36.5; O2SAT 92–95
--- NOTE | 2022-04-15 04:41 | PC.NURSE ---
patient pulled out iv. will attempt to place new iv.
[2022-04-15 05:21] LABS: Basophils Percent Auto 0.3 % (0.2-1.2); Eosinophils Absolute Auto 0.2 K/mm3 (0-0.3); Eosinophils Percent Auto 2.9 % (0-4.4); Hematocrit 44.8 % (42.0-52.0); Hemoglobin 15.2 g/dL (14.0-18.0); Immature Granulocyte Absolute 0.04 K/mm3 (0.00-0.031); Immature Granulocyte Percent A 0.6 % (0-0.5); Lymphocytes Absolute Auto 1.66 K/mm3 (0.9-3.2); Mean Corpuscular HGB Conc 33.9 g/dl (32-36); Mean Corpuscular Hemoglobin 33.8 pg (26-34); Mean Corpuscular Volume 99.6 fl (80-100); Mean Platelet Volume 10.1 fl (7.4-10.4); Monocytes Absolute Auto 0.5 K/mm3 (0.1-0.6); Monocytes Percent Auto 7.5 % (2.6-8.5); Neutrophils Absolute Auto 4.2 K/mm3 (1.3-6.7); Neutrophils Percent Auto 63.7 % (45.5-73.1); Platelet Count Result 238 k/mm3 (150-375); Red Cell Distribution Width 11.9 % (11.5-14.5); White Blood Count 6.6 K/mm3 (4.5-10.0)
[2022-04-15 05:32] LABS: Alanine Aminotransferase 26 U/L (6-50); Albumin Level 3.9 g/dL (3.5-5.1); Alkaline Phosphatase 68 U/L (38-126); Anion Gap 6 mmol/L (8-16); Aspartate Amino Transferase 27 U/L (17-59); Bilirubin,Total 0.5 mg/dL (0.2-1.3); Blood Urea Nitrogen 12 mg/dL (9-20); Calcium 8.6 mg/dL (8.4-10.2); Carbon Dioxide 25 mmol/L (22-30); Chloride 105 mmol/L (98-107); Estimated CRCL calculation 110 ml/min; Estimated Glomerular Filt Rate > 60; Glucose 91 mg/dL (65-110); Potassium 3.8 mmol/L (3.4-5.0); Sodium 136 mmol/L (137-145)
--- NOTE | 2022-04-15 07:52 | ECG_ITS ---
Measurements Intervals [place] Rate: 84 P: SD: 0 QRS: 60 QRSD: 102 T: 29 QT: 370 QTc: 440 Interpretive Statements ATRIAL FLUTTER/TACHYCARDIA VENTRICULAR PREMATURE COMPLEX EARLY PRECORDIAL R/S TRANSITION ABNORMAL ECG COMPARED TO ECG 04/14/2022 10:34:46 NO SIGNIFICANT CHANGES Electronically Signed On 04-18-2022 13:54:10 WET WASH ASSEMBLER by Toney Patel D.O.
--- NOTE | 2022-04-15 08:02 | PM.PNCARD ---
Progress Note: A&P Assessment and Plan (1) PSVT (paroxysmal supraventricular tachycardia): Code(s): I47.1 - Supraventricular tachycardia Status: Acute Assessment and Plan: First episode. Vagal maneuver changed rhythm to either sinus or ectopic atrial tachycardia. Overnight, he went into atrial fib/flutter. [id number] 3. Electrolytes are OK. Mildly low potassium that is repleted. Mag is normal. Amiodarone IV started, will continue for 24 hours, then stopped. He is still in atrial flutter at 85 bpm. Start Amiodarone 200 mg PO BID. Discussed anticoagulation. Started Xarelto 20 mg in evening with meal. Apea link was positive for MEDINA, and will need outpatient sleep study. May d/c home from cardiology standpoint and f/u with his regular cardiology, Dr. Perez in 1 week. (2) Hypertension: Code(s): I10 - Essential (primary) hypertension Status: Acute Assessment and Plan: Stable. (3) Hyperlipidemia: Code(s): E78.5 - Hyperlipidemia, unspecified Status: Acute Assessment and Plan: On Rosuvastatin. (4) CAD (coronary artery disease): Code(s): I25.10 - Atherosclerotic heart disease of [place] coronary artery without angina pectoris Status: Acute Assessment and Plan: Obtain cath report from [facility] in [place], around 2020, which we have not received. (5) Elevated troponin: Code(s): R77.8 - Other specified abnormalities of plasma proteins Status: Acute Assessment and Plan: This could be due to demand ischemia related to rapid SVT. Troponin peaking at 0.62. Stopped Lovenox. Continue aspirin daily, Carvedilol and Rosuvastatin. 04/14/22 Echo: EF 55-60%, aortic root dilated at 5.0 cm, prox ascending aorta OK at 3.5 ccm. Subjective Date/time seen: 04/15/22 08:02 Interval history: Denies chest pain or sob. Exam Const: General: cooperative, healthy appearing, comfortable and obese Nutritional Appearance: obese Orientation/consciousness: oriented to person, oriented to place and oriented to time Resp: Auscultation: clear to auscultation bilaterally, no crackles, no rales, no rhonchi and no wheezes Cardio: Rate: regular rate Rhythm: regular rhythm and abnormal rhythm Heart sounds: no murmurs Peripheral pulses: dorsalis pedis present Neuro: General: oriented to person, oriented to place and oriented to time Extrem: Right lower extremity: no edema Left lower extremity: no edema Objective Data Vital Signs Vital Signs: Vital Signs - 24 hr 04/14/22 08:21 04/14/22 08:31 04/14/22 09:26 Temperature 96.8 F L Pulse Rate 55 L 83 83 Respiratory Rate 20 22 H Blood Pressure 102/67 Pulse Oximetry 94 Oxygen Delivery 04/14/22 09:27 04/14/22 10:00 04/14/22 09:42 Temperature Pulse Rate 83 87 84 Respiratory Rate 22 H 22 H Blood Pressure Pulse Oximetry Oxygen Delivery 04/14/22 11:47 04/14/22 12:29 04/14/22 13:23 Temperature 96.4 F L Pulse Rate 113 H 97 97 Respiratory Rate 22 H Blood Pressure 128/73 Pulse Oximetry 93 Oxygen Delivery 04/14/22 12:00 04/14/22 12:00 04/14/22 14:00 Temperature Pulse Rate 120 H 120 H 103 H Respiratory Rate 14 Blood Pressure Pulse Oximetry 99 Oxygen Delivery Room Air 04/14/22 16:51 04/14/22 18:11 04/14/22 18:11 Temperature 97.2 F L Pulse Rate 104 H 106 H 107 H Respiratory Rate 20 Blood Pressure 119/73 Pulse Oximetry 98 Oxygen Delivery 04/14/22 16:00 04/14/22 16:00 04/14/22 18:00 Temperature Pulse Rate 106 H 106 H 100 Respiratory Rate 14 Blood Pressure Pulse Oximetry 98 Oxygen Delivery Room Air 04/14/22 20:00 04/14/22 20:00 04/14/22 20:00 Temperature 97.0 F L Pulse Rate 94 94 88 Respiratory Rate 20 20 Blood Pressure 132/82 Pulse Oximetry 96 96 Oxygen Delivery Room Air 04/14/22 22:00 04/14/22 23:44 04/15/22 00:00 Temperature 97.6 F Pulse Rate 89 89 76 Respiratory Rate
[2022-04-15] MEDS: ALBUTEROL SULFATE (*SP) AEROSOL 1 PUFF 2 PUFF INHALATION (08:45)
[2022-04-15] MEDS: FLUTICASONE/UMECLIDIN/VILANTER 100-62.5-25 MCG ELLIPTA 1 PUFF INHALATION (08:45)
[2022-04-15] MEDS: ASPIRIN 81 MG CHEWABLE TABLET PO (09:02)
[2022-04-15] MEDS: AMIODARONE HCL 200 MG TABLET PO (09:02)
[2022-04-15] MEDS: ASPIRIN 81 MG ENTERIC TABLET PO (09:02)
[2022-04-15] MEDS: carvediloL 6.25 MG TABLET PO (09:03)
--- NOTE | 2022-04-15 11:14 | PM.DS ---
DS: Admitting Diagnosis Discharge Date 04/15/2022 Admitting Diagnosis palpitations DS: Discharge Diagnosis Discharge Diagnosis (1) Paroxysmal supraventricular tachycardia: Code(s): I47.1 - Supraventricular tachycardia Status: Acute (2) Elevated troponin: Code(s): R77.8 - Other specified abnormalities of plasma proteins Status: Acute (3) Hypertension: Code(s): I10 - Essential (primary) hypertension Status: Acute (4) Hyperlipidemia: Code(s): E78.5 - Hyperlipidemia, unspecified Status: Acute (5) Chronic obstructive pulmonary disease: Code(s): J44.9 - Chronic obstructive pulmonary disease, unspecified Status: Acute (6) Coronary artery disease: Code(s): I25.10 - Atherosclerotic heart disease of [place] coronary artery without angina pectoris Status: Acute (7) Lung nodule: Code(s): R91.1 - Solitary pulmonary nodule Status: Acute DS: Summary Hospital Course Hospital Course: # Paroxysmal supraventricular tachycardia: This is the 1st episode for this patient, modified Valsalva maneuver converted him to a sinus or ectopic atrial tachycardia /atrial fibrillation. Potassium and calcium being replaced.? TSH mildly high at 5.3.? Apnea link with possible sleep apnea.? Need outpatient sleep study. Started on amiodarone drip for cardiology.? Noted underlying rhythm to be AFib with RVR.? remain and AFib but rate controlled. IV amiodarone switched to oral. Started on Xarelto for anticoagulation Continued on his home dose of Coreg. Follow-up with Cardiology on outpatient basis. Echocardiogram with ejection fraction 55-60% with no pulmonary hypertension mild aortic valve sclerosis. Proximal ascending aorta okay at 3.5 cm no other valvular abnormality. # Elevated troponin: likely related to prolonged SVT (at least 90 minutes). He has a history of nonobstructing coronary artery disease however. Catheterization report requested for review. Echocardiogram with EF 55-60% no pulmonary hypertension mild aortic valve sclerosis.? Proximal ascending aorta 3.5 cm no other valvular abnormality noted.? Started on Lovenox full dose Switched to Xarelto # hypertension: Blood pressures were reviewed and they are stable.? Continue antihypertensives and monitor closely. # hyperlipidemia: Continue rosuvastatin 40 mg daily. # COPD: No acute exacerbation. Continue maintenance inhalers. # coronary artery Disease: Continue aspirin, beta-karina, statin. # lung nodule: 7 and 3 mm left lower lobe lung nodules noted on CT today. Given smoking history this needs to be followed. Subjective Time Spent with Patient Time attestation: Total time spent providing and/or coordinating discharge services: Minutes Exam Narrative: General: Well-developed, nontoxic-appearing male in the semi-Rodney position in bed in no distress. HEENT: PERRL, EOMI. Sclera anicteric. Oral mucosa moist. Several missing teeth. Oropharynx clear. Neck: Supple. No JVD. Respiratory: Lungs are clear to auscultation bilaterally. No respiratory distress Cardiovascular: Irregularly irregular rhythm AFib in telemetry, normal S1-S2. Gastrointestinal: Abdomen is soft, obese, nontender, and nondistended with positive bowel sounds. Skin: Warm and dry. No rash or lesions on limited exam. Extremities: No cyanosis, clubbing, or edema. Radial and pedal pulses intact. Neurological: Alert. Cranial nerves 2-12 are grossly intact. No gross focal deficits to casual conversation. Psychiatric: Pleasant and cooperative with normal mood and affect. Judgment and insight intact. DS: Data Data Completed and Pending Completed studies during hospitalization: Exam Type: ? ? CA echo dop color flow w con Study Info Indications ?? ? - elevated troponin ? ? R07.9 - Chest pain,? unspecified Account #: ? ? [id number] Contrast/Agitated Saline Contrast/Ag. Saline:
== END 2022-04-15 12:10 | disposition home or self-care (01) | DRG 310 ==
LOC: ANHED 14:36 → ANHIMU 18:30
PROVIDERS: Internal Medicine Cardiovascular Disease; Physician Assistant; Admitting Provider Chiropractor; Emergency Provider Emergency Medicine; PCP Internal Medicine; Visit Provider Internal Medicine
DX: I47.1 Supraventricular tachycardia (principal); J43.9 Emphysema, unspecified; E66.9 Obesity, unspecified; E78.5 Hyperlipidemia, unspecified; I10 Essential (primary) hypertension; I25.10 Atherosclerotic heart disease of native coronary artery without angina pectoris; I48.91 Unspecified atrial fibrillation; I48.92 Unspecified atrial flutter; R91.8 Other nonspecific abnormal finding of lung field; Z68.39 Body mass index [BMI] 39.0-39.9, adult; Z87.891 Personal history of nicotine dependence; Z20.822 Contact with and (suspected) exposure to COVID-19
CPT/HCPCS: 36415; 71275; 80048; 80053; 81003; 83735; 84439; 84443; 84480; 84484; 85025; 85610; 85730; 87637; 93005; 94640; 94762; 99285; A9270; C8929; J0282; J0610; J1650; J7030; Q9957; Q9967

== ENCOUNTER 2022-09-05 09:19 | Outpatient (CLI) | payer MEDICARE, OTHER, SELFPAY ==
--- NOTE | ~2022-09-05 | CT_ITS ---
CT Scan of the Chest without Contrast: Clinical Indication: Pulmonary nodule, prior history of melanoma Technique: Contiguous sections were acquired throughout the chest without intravenous contrast. Dose reduction technique was used on this scan by utilizing automated exposure control and iterative recon struction technique. The dose-length product (DLP) was 355.51 mGy-cm. COMPARISON: 04/13/2022 Findings: There is no evidence of any significant mediastinal, hilar or axillary lymphadenopathy. Coronary sathish ry calcifications are present. There are minimal atherosclerotic calcifications of the aorta. There is no evidence of pleural or pericardial effusion. Stable right lower lobe pulmonary nodule adjacent to the fissure (axial image 81). Stable left lower lobe pulmonary nodules (axial image 105, 93). Mild emphysema noted. There is bibasilar scarring or at electatic change. Images through the upper abdomen reveal no abnormalities. Stable compression fractures of T5 and T7 n oted. Impression: Stable pulmonary nodules, as detailed above. Mild emphysema. Stable compression fractures of T5 and T7. Reviewed, dictated and finalized at location . Impression: Stable pulmonary nodules, as detailed above. Mild emphysema. Stable compression fractures of T5 and T7.
== END 2022-09-05 09:20 | disposition home or self-care (01) ==
LOC: CHSIMG 09:21
PROVIDERS: PCP Internal Medicine; Visit Provider Internal Medicine
DX: R91.1 Solitary pulmonary nodule (principal); J43.9 Emphysema, unspecified; M48.54XA Collapsed vertebra, not elsewhere classified, thoracic region, initial encounter for fracture
CPT/HCPCS: 71250

== ENCOUNTER 2023-12-06 10:54 | Outpatient (CLI) | payer MEDICARE, OTHER, SELFPAY ==
--- NOTE | ~2023-12-06 | CT_ITS ---
CT Scan of the Chest without Contrast: Clinical Indication: Pulmonary nodule, history of melanoma Technique: Contiguous sections were acquired throughout the chest without intravenous contrast. Dose reduction technique was used on this scan by utilizing automated exposure control and iterative recon struction technique. The dose-length product (DLP) was 394.43 mGy-cm. COMPARISON: 09/05/2022 Findings: There is no evidence of any significant mediastinal, hilar or axillary lymphadenopathy. Coronary sathish ry calcifications are present. There is no evidence of pleural or pericardial effusion. Moderate to advanced emphysema present. Stable Fissural nodule at the anterior right lung base. Chronic right basilar scarring or atelectasis noted. Stable 5 mm left basilar pulmonary nodule (axial image 105). Stable additional 2 mm left lower lobe pulmonary nodule (axial image 94. Images through the upper abdomen reveal no abnormalities. Stable compression fractures of T5 and T7 n oted. Impression: Stable subcentimeter pulmonary nodules, as above. Moderate to advanced emphysema. Reviewed, dictated and finalized at [facility]. Impression: Stable subcentimeter pulmonary nodules, as above. Moderate to advanced emphysema.
== END 2023-12-06 10:55 | disposition home or self-care (01) ==
PROVIDERS: PCP Internal Medicine; Visit Provider Internal Medicine
DX: R91.8 Other nonspecific abnormal finding of lung field (principal)
CPT/HCPCS: 71250

== ENCOUNTER 2023-12-18 10:04 | Outpatient (CLI) | payer MEDICARE, OTHER, SELFPAY ==
--- NOTE | ~2023-12-18 | XR_ITS ---
EXAMINATION: XR chest 2V DATE: 12/18/2023 10:22 INDICATION: Dyspnea TECHNIQUE: PA and lateral views of the chest were obtained. COMPARISON: Chest CT dated 12/06/2023 FINDINGS: Mild hyperexpansion of lungs with increased lucency in the upper lung zones consistent with emphysema better appreciated on prior CT. Again seen are streaky and bandlike opacities at the bilateral lower lung zones consistent with chronic atelectasis/scarring. No pulmonary edema, pleural effusion or pne umothorax. Heart size is normal. Left pectoral implantable sheet metal operator. Stable appearance of synchro assembler jem compression fractures at T5 and T7. IMPRESSION: 1. 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 No acute cardiopulmonary disease . Reviewed, dictated and finalized at location B. IMPRESSION: 1. 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 No acute c ardiopulmonary disease.
[2023-12-18 10:38] LABS: Basophils Absolute Auto 0.06 K/mm3 (0.00-0.10); Basophils Percent Auto 0.8 % (0.0-1.0); Eosinophils Absolute Auto 0.28 K/mm3 (0.02-0.50); Eosinophils Percent Auto 3.6 % (1.0-6.0); Hematocrit 46.7 % (37.0-46.0); Hemoglobin 15.8 g/dL (12.4-15.3); Immature Granulocyte Absolute 0.04 K/mm3 (0.00-0.00); Immature Granulocyte Percent A 0.5 % (0.0-0.0); Lymphocytes Absolute Auto 1.29 K/mm3 (1.10-4.50); Lymphocytes Percent Auto 16.7 % (18.0-42.0); Mean Corpuscular HGB Conc 33.8 g/dL (32-36); Mean Corpuscular Hemoglobin 33.7 pg (27.0-31.0); Mean Corpuscular Volume 99.6 fL (78.0-102.0); Mean Platelet Volume 10.1 fl (8.7-11.0); Monocytes Absolute Auto 0.59 K/mm3 (0.10-0.90); Monocytes Percent Auto 7.6 % (2.0-11.0); Neutrophils Absolute Auto 5.47 K/mm3 (1.70-7.20); Neutrophils Percent Auto 70.8 % (50.0-70.0); Platelet Count Result 272 K/mm3 (150-420); Red Blood Count 4.69 M/mm3 (4.70-6.10); Red Cell Distribution Width 11.4 % (11.6-14.4); White Blood Count 7.7 K/mm3 (4.8-10.8)
[2023-12-18 10:54] LABS: D Dimer 0.36 mg/L (0.19-0.50)
[2023-12-18 14:27] LABS: NT Pro B Type Natriuretic Pept 76 pg/mL (0-125)
== END 2023-12-18 10:05 | disposition home or self-care (01) ==
LOC: CHSLAB 10:05
PROVIDERS: PCP Internal Medicine; Visit Provider Internal Medicine
DX: R06.00 Dyspnea, unspecified (principal); R91.8 Other nonspecific abnormal finding of lung field
CPT/HCPCS: 36415; 71046; 83880; 85025; 85380

== ENCOUNTER 2025-01-06 07:49 | Outpatient (CLI) | payer MEDICARE, OTHER, SELFPAY ==
--- OUTSIDE RECORDS SUMMARY | 1999-03-11 04:45 | XMS_ITS | Continuity of Care Document ---
Author Organization [facility] Address [address] [place] [address] Phone Care Team Providers Care Solar Thermal Technician Name Role Phone Dennysy, Edward Unavailable Unavailable Advance Directives Directive Yes / No Effective Date File Name No Information Encounters Encounter Description Practice Location Reason(s) For Visit Diagnoses Date Provider Providers Copied on Encounter [facility], [address], [place], [place], [id number], [place] tel:[phone] SEC [facility] No Information Dec-1 0-199 9 Doisy Edward. [address] [facility] , [address], [place], [address], [place]. tel:[phone] Family History Family Member Type Diagnosis Age At Onset No Information Payers Payer name Insurance type Covered green party ID Authoriza timercedez(s) [employer] SOI CI [id number] Social History Type Description Quantity Date Captured Comments Sex Male Smoking Status No Information Chief Complaint And Reason For Visit No Information Reason For Referral Reason For Referral No Information History Of Present Illness Encounter Date Complaint History Of Prese nt Illness No Information Functional Status Date Functional Assessmen t No Information Instructions Date Instruction Additional Infor mation No Information Assessments Type Assessment Date No Information Patient Care Teams Name Effective Dates (start - stop) Status Members No Information
--- NOTE | ~2025-01-06 | US_ITS ---
EXAMINATION: US aorta DATE: 01/06/2025 08:15 INDICATION: Abdominal aortic aneurysm screening risk factors of diabetes, obesity, hypercholesterolemia and prior smoking TECHNIQUE: Grayscale, color Doppler, and pulsed Doppler images of the aorta and common iliac arteries were obtained. COMPARISON: None. FINDINGS: The proximal aorta measures 2.5 cm. The mid aorta measures 2.5 cm. The distal aorta measures 2.5 cm. The right common iliac artery measures 1.8 cm. The left common iliac artery measures 1.8 cm. IMPRESSION: 1. Normal caliber abdominal aorta. Reviewed, dictated and finalized at location A.
--- OUTSIDE RECORDS SUMMARY | 2025-01-06 07:58 | XMS_ITS | Encounter Summary ---
Author Organization [facility] Address [facility] [place] [address] Care Team Providers Care Program Paraprofessional Name Role Phone Maryann Triana MD Primary Care Provider [phone] Miller Perez MD Unavailable [phone] Som Severino MD Unavailable [phone] Keaton Smith MD Unavailable [phone] Machelle Coelho [facility] Unavailable [phone] Encounter Details Date Type Department Care Team (Late st Contact Info) Description 02/07/2023 MyChart Message Enc [facility] [address] [place] [address] Thalia Villalba MD [address] [place] [address] Sleep and Breathing Test Date Social History Tobacco Use Types Packs/Day Years Used Date Smoking Tobacco: Former Cigarettes Q uit: 06/2015 Smokeless Tobacco: Never Alcohol Use Standard Drinks/Week Comments Yes 0 (1 standard drink = 0.6 oz pur e alcohol) 2 per day Sex and Gender Information Value Date Recorded Sex Assigned at Male 12/25/2024 10:46 AM CDT Legal Sex Male 6:43 PM CDT Gender Identity Not on file Sexual Orientation Not on file Occupation Industry Job Start Date Job End Date Retired Not on file Not on file Not on file documented as of this encounter Plan of Treatment Upcoming Encounters Date Type Department Care Team (Late st Contact Info) Description 01/30/2025 2:30 AM CDT Allied Health/Nurse Visit [facility] [address] [place] [phone] oSm Severino MD [address] [place] [address] 05/25/2025 12:00 PM PRODUCT SAFETY PROFESSIONAL [facility] [address] [place] [phone] Machelle Coelho, ANP-BC [address] [place] [address] documented as of this encounter Visit Diagnoses Not on filedocumented in this encounter Care Teams Program Paraprofessional Relationship Specialty Start Date End Date Maryann Triana MD [address] [place] [phone] PCP - General INTERNAL MEDICINE 02/13/19 Miller Perez MD [address] [place] [address] [place] Infection Control Nurse CARDIOVASCULAR DISEASE 02/13/19 07/18/23 Som Severino MD [address] [place] [address] Consulting Physician CLINICAL CARDIAC ELECTROPHYSIOLOGY 05/18/22 Keaton Smith MD [address] [place] [address] INTERVENTIONAL CARDIOLOGY 07/19/2306/06 Machelle Coelho, ANP-BC [address] [place], [place] [id number] Nurse Practitioner NURSE PRACTITIONER ADULT HEALTH 07/19/23 documented as of this encounter
--- OUTSIDE RECORDS SUMMARY | 2025-01-06 07:58 | XMS_ITS | Clinical Summary ---
Author Organization [facility] Address [address] [place] [address] Care Team Providers Care Auto Suspension And Steering Mechanic Name Role Phone Maryann Jamison MD Primary Care Provider [phone] Som Severino MD Unavailable [phone] Machelle Coelho [facility]- Unavailable [phone] Allergies No known active allergies Medications hydrocodone-acet aminophen 5-325 MG tablet Take 1 tablet by mouth every 6 (six) hours as needed. Active fluticasone propionate 50 MCG/ACT nasal spray 1 spray by Nasal route daily. Active triamcinolone 0.1 % cream Apply topically 2 (two) times daily. Active albuterol sulfate HFA 108 (90 Base) MCG/ACT inhaler Inhale 2 puffs into the lungs every 6 (six) hours as needed. Active aspirin EC 81 MG tablet Take 1 tablet (81 mg total) by mouth daily. 90 tablet 3 0 Active TRELEGY 100-62.5-25 MCG/INH AEROSOL POWDER, BREATH ACTIVATED Inhale 1 puff into the lungs daily. 1 Active betamethasone dipropionate augmented (DIPROLENE) 0.05 % ointment as needed. 2 Active calcipotriene (DOVONOX) 0.005 % cream as needed. 2 Active nitroglycerin (NITROSTAT) 0.[address] 1 tablet (0.4 mg total) under the tongue every 5 (five) minutes as needed for Chest Pain. 25 tablet 1 3 Active cetirizine (ZYRTEC) 10 MG tablet Take 1 tablet (10 mg total) by mouth daily. Active Ibuprofen-diphen hydrAMINE Cit (ADVIL PM OR) Take by mouth as needed. Active carvedilol (COREG) 6.25 MG tablet TAKE 1 TABLET TWICE DAILY (NEED MD APPOINTMENT) 180 tablet 2 3 Active OXYGEN CONCENTRATOR SUPPLY, DME,Indications: Centrilobular emphysema ([facility]) Please provide patient with oxygen 2 L/min for activity. Diagnosis emphysema. 1 Device 3 Active OXYGENIndication s:Chronic obstructive pulmonary disease, unspecified COPD type ([facility]),Asthma- COPD overlap syndrome ([facility]),Centril obular emphysema ([facility]) PORTABLE OXYGEN CONCENTRATOR 2L/MIN PER ACTIVITY VIA NASAL CANNULA 1 Device 4 Active CPAP DEVICE, DME,Indications: Obstructive sleep apnea (adult) (pediatric) CPAP pressure 7. Obstructive sleep apnea. G47.33. Patient meets criteria for CPAP therapy with AHI of 5.3 because of breathing difficulties and COPD. Patient needs supplemental oxygen 1 L/min with CPAP. Please provide patient with mask, harness, tubing, filters, heated humidity and all supplies for CPAP machine. X 99 refills 1 Device 4 Active furosemide (LASIX) 20 MG tabletIndication s:Coronary artery disease involving circle coronary artery of circle heart without angina pectoris Take 1 tablet (20 mg total) by mouth daily. In the morning 90 tablet 3 5 Active montelukast (SINGULAIR) 10 MG tabletIndication s:Moderate persistent asthma without complication ([facility]) TAKE 1 TABLET EVERY NIGHT AT BEDTIME 90 tablet 3 5 Active rosuvastatin (CRESTOR) 20 MG tablet Take 1 tablet (20 mg total) by mouth nightly at bedtime. 90 tablet 2 5 Active CPAP DEVICE [place], DME,Indications: Obstructive sleep apnea (adult) (pediatric) Present CPAP pressure 7. Obstructive sleep apnea. G47.33. Please increase CPAP pressure to 8. Please suggest patient CPAP machine to reflect the new settings. 1 Device 5 Active Active Problems Problem Noted Date Diagnosed Date Dependence on supplemental oxygen 06/01/2024 Shortness of breath 12/19/2023 Excessive daytime sleepiness 10/24/2023 Hypoxia 04/21/2023 Implantable loop recorder present 03/20/2023 Obstructive sleep apnea (adult) (pediatric) 04/2022 Moderate persistent asthma without complication ([facility]) 01/31/2023 Asthma-COPD overlap syndrome ([facility]) 1 04/02/2022 MEDINA and COPD overlap syndrome ([facility]) 01/31/2023 Closed fracture of sixth tho racic vertebra with routine healing, unspecified fracture morphology, subsequent encounter 01/31/2023 Atrial flutter ([facility]) 09/20/2022 S/P ablation of atrial flutter 09/20/2022 Coronary artery disease invo lving circle coronary artery of circle heart without angina pectoris 06/07/2019 Family history of early CAD 04/07/2019 COPD (chronic obstructive pu lmonary disease) ([facility]) 04/07/2019 Mixed hyperlipidemia 03/04/2019 Encounters Date Type Department Care Team Description 01/01/2025 Telephone [facility] [address] [place] [address] Machelle Coelho ANP-JOCELYNE Reschedule 12/26/2024 Telephone [facility] [address] [place] [address] Machelle Coelho ANP-JOCELYNE Appointment Request 12/25/2024 10:50 AM CDT - 12/25/2024 11:59 PM CDT Hospital Encounter [facility] [address] [facility] [address] Maryann Jamison MD Discharge Disposition: Home or Self Care (Routine Discharge) 12/25/2024 Travel 12/09/2024 2:15 AM CDT Allied Health/Nurse Visit [facility] [address] [place] [address] Som Severino MD 10/28/2024 1:30 AM CDT Allied Health/Nurse Visit [facility] [address] [place] [address] Som Severino MD 10/23/2024 11:00 AM CDT Office Visit [facility] [address] [place] [address] Thalia Villalba MD Follow Up (Pt is here for a 4 month follow up on shortness of breath and obstructive sleep apnea. ); Shortness Of Breath (Pt uses his oxygen at 2 liters with walking distances. ); Obstructive Sleep Apnea (Pt states he uses his cpap machine all most nightly about 6-10 hours. ) 10/23/2024 [facility] [place] [address] [place] [address] Thalia Villalba MD Advice 10/23/2024 Travel from Last 3 Months Family History Medical History Relation Comments Colon Cancer Father Heart Attack Father 5 vessel CABG Heart Attack Mother Relation Status Comments Father Mother Social History Tobacco Use Types Packs/Day Years Used Date Smoking Tobacco: Former Cigarettes Q uit: 06/2015 Smokeless Tobacco: Never Tobacco Cessation:Counseling Given: Not Answered Alcohol Use Standard Drinks/Week Comments Yes 0 (1 standard drink = 0.6 oz pur e alcohol) 2 per day PHQ-2 Answer Date Recorded Patient Health Questionnaire-2 Score 0 06/14/2023 Sex and Gender Information Value Date Recorded Sex Assigned at Male 12/25/2024 10:46 AM CDT Legal Sex Male 6:43 PM CDT Gender Identity Not on file Sexual Orientation Not on file Occupation Industry Job Start Date Job End Date Retired Not on file Not on file Not on file Last Filed Vital Signs Vital Sign Reading Time Taken Comments Blood Pressure 134/83 10/23/2024 10:56 AM CDT Pulse 62 10/23/2024 10:56 AM CDT Temperature 36.1 C (97 F) 05/18/2022 6:48 AM DOUBLE END TENON OPERATOR Respiratory Rate 16 10/23/2024 10:5 6 AM CDT Oxygen Saturation 95% 10/23/2024 10: 56 AM CDT Inhaled Oxygen Concentration - - Weight 139.6 kg (307 lb 12.8 oz) 2024 10:56 AM CDT Height 193 cm (6' 4) 10/23/2024 10:56 AM CDT Body Mass Index 37.47 10/23/2024 10:56 AM CDT Plan of Treatment Upcoming Encounters Date Type Department Care Team (Late st Contact Info) Description 01/30/2025 2:30 AM CDT Allied Health/Nurse Visit [facility] ld [address] [place] [address] Som Severino MD [address] [place] [address] 05/25/2025 12:00 PM DOUBLE END TENON OPERATOR Office Visit [facility] [place] [address] Machelle Coelho, [facility]- [address] [place] [address] Health Maintenance Due Date Last Done Comments Colorectal Cancer Screening Colonoscopy (10 Years) 1954 Hepatitis C 1972 RSV Immunization or 60+ Years (1 - Risk 60-74 years 1-dose series) 2014 Annual Medicare Wellness Visit 2019 Pneumococcal Vaccine: 50+ Years (2 of 2 - PCV) 09/09/2020 09/10/2019, 04/06/2011 DTaP, Tdap and Td Vaccines (2 - Td or Tdap) 04/06/2021 04/06/2011 PHQ-2 (Physician [place]) 04/02/2024 06/14/2023 ASCVD LDL 09/27/2024 09/28/2023, 12/31, 01/22/2021, Additional history exists COVID-19 Vaccine ( season) 2024 03/22/2021, 2020, 05/07/2020 Influenza Adult (#1) 2024 03/11/2014, 02/29/20 13 Zoster Vaccines Completed 04/08/2018, 08/10/2017, 03/09/2016 AAA SCREENING Completed 12/25/2024 Meningococcal B Vaccine Aged Out No l onger eligible based on patient's age to complete this topic Meningococcal Vaccine Aged Out No eliseo minnie eligible based on patient's age to complete this topic RSV Immunizations Under 20 Months Aged Out No longer eligible based on patient's age to complete this topic Medical Devices Implanted Type Area Complementary Health Therapists Device Identifier Shelf Expiration Date Model / Serial / Lot Medtronic Linq Ii-05/18/2022 Implanted: by Som Severino MD (Quantity not on file) Implantable Loop Recorder [employer] 10/10/2023 [id number] / [id number] / Description:DX: Suspected AF ib Procedures Procedure Name Priority Date/Time Associated Diagnosis Comments CT CHEST WO CON Routine 12/25/2024 11:07 AM CDT Pulmonary nodule LIPID PANEL Routine 09/28/2023 from Last 3 Months or Most Recently Relevant to Health Maintenance Results * CT CHEST WO CON (12/25/2024 11:07 AM CDT) Anatomical Region Laterality Modality Chest Computed Tomogra phy 12/31/2024 3:19 PM CDT Impressions 12/31/2024 3:29 PM CDT IMPRESSION: 1. No acute intrathoracic process identified. 2. Benign pulmonary nodules as described. No specific surveillance is indicated. 3. No evidence of metastatic disease. 4. Coronary artery disease. 5. Centrilobular emphysema. 6. Additional chronic/nonurgent findings as described. Ordered By: MARYANN JAMISON Interpreted By: Victor Manuel Liu MD, 12/31/2024 3:19 PM Narrative 12/31/2024 3:29 PM CDT [address] [place] [address] Examination: CT of the chest without contrast. Exam time: 1107 hours. Clinical history: Follow-up of pulmonary nodules. History of melanoma. Comparison: 12/06/2023, 09/05/2022 ([facility]), coronary calcium screening CT, 03/17/2019 ([facility]). Technique: Spiral scanning was performed through the chest without contrast. Sagittal and coronal reconstructions performed from the data set. A dose lowering technique was used for this procedure, which may include, but is not limited to, dose reduction techniques, automated exposure control, the use of iterative reconstruction and ALARA/Image Gently techniques. Findings: Calcific coronary artery disease and atherosclerotic calcification of the aorta and arch vessels again evident. The heart and great vessels are otherwise unremarkable for the noncontrast technique. No hilar or mediastinal adenopathy is identified. No endobronchial abnormality is identified. Changes of centrilobular emphysema are again evident. Calcified granulomas in the right lower lobe again evident. Scarring in the inferior lingula and bilateral lower lobes, right greater than left, appears similar to 09/05/2022. Perifissural nodule on the right referenced on 09/05/2022 is present since 2019, stable to slightly decreased in size, benign, presumably a granuloma. Sub-6 mm noncalcified nodules in the left lower lobe were not within the field of view in 2019 but are stable since 2022 and are now also judged benign. No new nodules are identified. There is no dominant mass or focal airspace opacity. There is no pleural effusion. The chest wall structures are unchanged. There is stable mild superior endplate deformity of T4 and wedge compression deformity of T5 and T7 on sagittal reconstruction. No suspicious bony lesion is identified. There is no axillary adenopathy. The included sections through the upper abdomen show no acute process. Procedure Note Victor Manuel Liu MD - 12/31/2024 [facility] [address] [facility] [place] [address] Examination: CT of the chest without contrast. Exam time: 1107 hours. Clinical history: Follow-up of pulmonary nodules. History of melanoma. Comparison: 12/06/2023, 09/05/2022 ([facility]), coronary calcium screening CT, 03/17/2019 ([facility]). Technique: Spiral scanning was performed through the chest withoutcontrast. Sagittal and coronal reconstructions performed from the dataset. A dose lowering technique was used for this procedure, which mayinclude, but is not limited to, dose reduction techniques, automatedexposure control, the use of iterative reconstruction and ALARA/ImageGently techniques. Findings: Calcific coronary artery disease and atheroscleroticcalcification of the aorta and arch vessels again evident. The heart andgreat vessels are otherwise unremarkable for the noncontrast technique. Nohilar or mediastinal adenopathy is identified. No endobronchialabnormality is identified. Changes of centrilobular emphysema are againevident. Calcified granulomas in the right lower lobe again evident.Scarring in the inferior lingula and bilateral lower lobes, right greaterthan left, appears similar to 09/05/2022. Perifissural nodule on the rightreferenced on 09/05/2022 is present since 2019, stable to slightly decreasedin size, benign, presumably a granuloma. Sub-6 mm noncalcified nodules inthe left lower lobe were not within the field of view in 2019 but arestable since 2022 and are now also judged benign. No new nodules areidentified. There is no dominant mass or focal airspace opacity. There isno pleural effusion. The chest wall structures are unchanged. There isstable mild superior endplate deformity of T4 and wedge compressiondeformity of T5 and T7 on sagittal reconstruction. No suspicious bonylesion is identified. There is no axillary adenopathy. The includedsections through the upper abdomen show no acute process. IMPRESSION: 1. No acute intrathoracic process identified. 2. Benign pulmonary nodules as described. No specific surveillance isindicated. 3. No evidence of metastatic disease. 4. Coronary artery disease. 5. Centrilobular emphysema. 6. Additional chronic/nonurgent findings as described. Ordered By: MARYANN JAMISON Interpreted By: Victor Manuel Liu MD, 12/31/2024 3:19 PM us Maryann Jamison MD CT Final Result * LIPID PANEL (09/28/2023) CHOLESTEROL 160 TRIGLYCERIDES 196 HDL 49 LDL (CALCULATED) 82 CHOL/HDL RATIO 3.3 NON HDL CHOLESTEROL 111 Narrative Resulting Agency Comment [facility] Maryann Jamison MD LABORATORY Final Result from Last 3 Months or Most Recently Relevant to Health Maintenance Insurance MEDICARE [place] [address] MEDICARE [place] [address] Member Subscriber Plan / Payer (Ef fective 2018-Present) Name:Raz Gomez Relation to Subscriber:Self Name:Raz Gomez Payer ID:Not on file Group ID:Not on file Type:Not on file Address: [place] [id number] Advance Directives * Full Code (Latest Code Status on File) Date Activated Date Inactivated Comments 05/18/2022 10:42 AM 05/18/2022 4:44 PM * Full Code Date Activated Date Inactivated Comments 04/07/2019 9:38 AM 04/07/2019 2:53 PM Care Teams Auto Suspension And Steering Mechanic Relationship Specialty Start Date End Date Maryann Jamison MD [address] [place] [address] PCP - General INTERNAL MEDICINE 02/13/19 Som Severino MD [address] [place] [address] Consulting Physician CLINICAL CARDIAC ELECTROPHYSIOLOGY 05/18/22 Machelle Coelho, [facility]- [address] [place] [address] Nurse Practitioner NURSE PRACTITIONER ADULT HEALTH 07/19/23
--- OUTSIDE RECORDS SUMMARY | 2025-01-06 07:59 | XMS_ITS | Encounter Summary ---
Author Organization [facility] Address [facility] [place] [address] Care Team Providers Care Ed Case Manager Name Role Phone Maryann Triana MD Primary Care Provider [phone] Miller Perez MD Unavailable [phone] Som Severino MD Unavailable [phone] Keaton Smith MD Unavailable [phone] Machelle Coelho [facility] Unavailable [phone] Encounter Details Date Type Department Care Team (Late st Contact Info) Description 05/24/2021 Abstract [facility] [address] [place] [phone] Miller Perez MD [address] [place] [address] Social History Tobacco Use Types Packs/Day Years [...] file Not on file Not on file COVID-19 Exposure Response Date Recorded In the last 10 days, have yo u been in contact with someone who was confirmed or suspected to have Coronavirus/COVID-19? No / Unsure 05/12/2021 12:29 PM MACHINE GUN MECHANIC documented as of this encounter Plan of Treatment Upcoming Encounters Date Type Department Care Team (Late st Contact Info) Description 01/30/2025 2:30 AM CDT [facility] [address] [place] [address] Som Severino MD [address] [place] [address] 05/25/2025 12:00 PM MACHINE GUN MECHANIC Office Visit [facility] [phone] [facility] [place] [address] Machelle Coelho, [facility]- [address] [place], [place] [phone] documented as of this encounter Procedures Procedure Name Priority Date/Time Associated Diagnosis Comments CMP (ABSTRACTED LAB) Routine 01/22/2021 TSH (OUTSIDE LAB) Routine 01/22/2021 CBC (OUTSIDE LAB) Routine 01/22/2021 HEMOGLOBIN, GLYCOSYLATED Routine 01/22/2021 VITAMIN D, 25 OH Routine 01/22/2021 documented in this encounter Results * CBC (OUTSIDE LAB) (01/22/2021) WBC 6.8 4.4 - 11.0 HGB 16.1 14.0 - 17.5 HCT 47.6 41.5 - 50.4 PLT 244 151 - 353 RBC 4.64 4.50 - 5.90 01/22/2021 us [facility] Abstract LAB-OUTSIDE/ABSTRACTED Final Result * VITAMIN D, 25 OH (01/22/2021) VITAMIN D 25 HYDROXY S/P/B 21 30 - 100 01/22/2021 us Doc [facility] Abstract LABORATORY Final Result * TSH (OUTSIDE LAB) (01/22/2021) Pathologist [facility] TSH 4.877 0.358 - 3.74 01/22/2021 us Doc [facility] Abstract LAB-OUTSIDE/ABSTRACTED Final Result * HEMOGLOBIN, GLYCOSYLATED (01/22/2021) Pathologist [facility] HGB A1C 5.8 <5.7 % 01/22/2021 us Doc [facility] Abstract LABORATORY Final Result * CMP (ABSTRACTED LAB) (01/22/2021) Pathologist [facility] SODIUM S/P/B 139 136 - 145 POTASSIUM S/P/B 4.3 3.5 - 5.1 CHLORIDE S/P/B 104 100 - 108 CO2 27.4 21 - 32 BUN 10 7 - 18 CREATININE S/P/B 0.88 0.7 - 1.3 EGFR AFR. AMER. >90 <=90 EGFR NON-AFR. AMER. 90 <=90 CALCIUM S/P/B 8.6 8.5 - 10.1 GLUCOSE 98 70 - 99 mg/dL TOTAL PROTEIN S/P/B 7.2 6.4 - 8.2 ALBUMIN S/P/B 3.6 3.4 - 5.0 AST 30 15 - 37 ALT 47 16 - 60 ALKALINE PHOSPHATASE S/P/B 76 50 - 136 BILIRUBIN TOTAL S/P/B 0.4 0.2 - 1.2 01/22/2021 us Doc [facility] Abstract LAB-OUTSIDE/ABSTRACTED Final Result documented in this encounter Visit Diagnoses Not on filedocumented in this encounter Care Teams Ed Case Manager Relationship Specialty Start Date End Date Maryann Triana MD [address] [place] [address] PCP - General INTERNAL MEDICINE 02/13/19 Miller Perez MD [address] [place] [address] [place] [employer] CARDIOVASCULAR DISEASE 02/13/19 07/18/23 Smo Severino MD [address] [place] [address] Consulting Physician CLINICAL CARDIAC ELECTROPHYSIOLOGY 05/18/22 Keaton Smith MD [address] [place], [place] [address] INTERVENTIONAL CARDIOLOGY 07/19/2306/06 Machelle Coelho, [facility]- [address] [place] [address] Nurse Practitioner NURSE PRACTITIONER ADULT HEALTH 07/19/23 documented as of this encounter
--- OUTSIDE RECORDS SUMMARY | 2025-01-06 07:59 | XMS_ITS | Encounter Summary ---
Author Organization [facility] Address [address] [place] [address] Care Team Providers Care Soil Science Technical Officer Name Role Phone Maryann Triana MD Primary Care Provider [phone] Miller Perez MD Unavailable [phone] Som Severino MD Unavailable [phone] Keaton Smith MD Unavailable [phone] Machelle Coelho [facility] Unavailable [phone] Reason for Visit * Reason Onset Date Comments Follow Up Call 04/30/2023 Regarding CPAP Encounter Details Date Type Department Care Team (Late st Contact Info) Description 04/30/2023 MyChart Message Enc [facility] Medical [facility] Mult[facility]pec[facility] [address] [place] [address] Thalia Villalba MD [address] [place] [address] CPAP - Raz Gomez Social History Tobacco Use Types Packs/Day Years Used Date Smoking Tobacco: Former Cigarettes Q uit: 06/2015 Smokeless Tobacco: Never Alcohol Use Standard Drinks/Week Comments Yes 0 (1 standard drink = 0.6 oz pur e alcohol) 2 per day PHQ-2 Answer Date Recorded Patient Health Questionnaire-2 Score 0 04/12/2023 Sex and Gender Information Value Date Recorded Sex Assigned at Male 12/25/2024 10:46 AM CDT Legal Sex Male 6:43 PM CDT Gender Identity Not on file Sexual Orientation Not on file Occupation Industry Job Start Date Job End Date Retired Not on file Not on file Not on file documented as of this encounter Progress Notes * Donavon Short MA - 05/10/2023 1:17 PM CST ? R SHARPENER * Cheyenne Reyes - 05/10/2023 12:46 PM CST Patient's following up Caller expresses she knows the office is busy but they are leaving for [place] and it would be much appreciated if this can be completed before they leave. Relayed to caller that Deejay just has to review report and get back to Carrie. Please call with any other updates Thanks [phone] R SHARPENER * Donavon Short MA - 05/08/2023 3:43 PM CST Do you have report that was in task folder? Needs to be sent to [facility] R SHARPENER * Donavon Short MA - 05/01/2023 1:27 PM CST Notes in task folder R SHARPENER documented in this encounter Plan of Treatment Upcoming Encounters Date Type Department Care Team (Late st Contact Info) Description 01/30/2025 2:30 AM CDT Allied Health/Nurse Visit [facility] [address] [place] [address] Som Severino MD [address] [place] [address] 05/25/2025 12:00 PM MOWER SHARPENER Office Visit [facility] [place] [address] Machelle Coelho ANP-BC [address] [place] [address] documented as of this encounter Visit Diagnoses Not on filedocumented in this encounter Care Teams Soil Science Technical Officer Relationship Specialty Start Date End Date Maryann Triana MD [address] [place] [address] PCP - General INTERNAL MEDICINE 02/13/19 Miller Perez MD [address] [place] [phone] Sibley Cutter Helper CARDIOVASCULAR DISEASE 02/13/19 07/18/23 Som Severino MD [address] [place] [address] Consulting Physician CLINICAL CARDIAC ELECTROPHYSIOLOGY 05/18/22 Keaton Smith MD [address] [place], [place] 3625[address] INTERVENTIONAL CARDIOLOGY 07/19/2306/06 Machelle Coelho ANP-BC [address] [place] [address] [id number] Nurse Practitioner NURSE PRACTITIONER ADULT HEALTH 07/19/23 documented as of this encounter
--- OUTSIDE RECORDS SUMMARY | 2025-01-06 07:59 | XMS_ITS | Encounter Summary ---
Author Organization [facility] Address [address] [place] [address] Care Team Providers Care Judge Clerk Name Role Phone Maryann Triana MD Primary Care Provider [phone] Miller Perez MD Unavailable [phone] Som Severino MD Unavailable [phone] Keaton Smith MD Unavailable [phone] Machelle Coelho [facility] Unavailable [phone] Encounter Details Date Type Department Care Team (Late st Contact Info) Description 05/11/2023 MyChart Message Enc [facility] Medical Group Multispecial[facility] [address] [place] [address] Thalia Villalba MD [address] [place] [address] Chewse-Raz Gomez Social History Tobacco Use Types Packs/Day [...] 01/30/2025 2:30 AM CDT [facility] [address] [place] [address] Som Severino MD [address] [place], [place] [address] 05/25/2025 12:00 PM ASSOCIATE SALES REPRESENTATIVE Office Visit [facility] [address] [place] [address] [place] [address] Machelle Coelho ANP-BC [address] [place] [address] documented as of this encounter Visit Diagnoses Not on filedocumented in this encounter Care Teams Judge Clerk Relationship Specialty Start Date End Date Maryann Triana MD [address] [place] [address] PCP - General INTERNAL MEDICINE 02/13/19 Miller Perez MD [address] [place] [address] Albia Reservations Clerk CARDIOVASCULAR DISEASE 02/13/19 07/18/23 Som Severino MD [address] [place] [address] Consulting Physician CLINICAL CARDIAC ELECTROPHYSIOLOGY 05/18/22 Keaton Smith MD [address] [place] [address] INTERVENTIONAL CARDIOLOGY 07/19/2306/06 Machelle Coelho ANP-BC [address] [place] [address] Nurse Practitioner NURSE PRACTITIONER ADULT HEALTH 07/19/23 documented as of this encounter
--- OUTSIDE RECORDS SUMMARY | 2025-01-06 07:59 | XMS_ITS | Encounter Summary ---
Author Organization [facility] Address [address] [place] [address] Care Team Providers Care Orchard Pruner Name Role Phone Maryann Triana MD Primary Care Provider [phone] Miller Perez MD Unavailable [phone] Som Severino MD Unavailable [phone] Keaton Smith MD Unavailable [phone] Machelle Coelho [facility] Unavailable [phone] Encounter Details Date Type Department Care Team (Late st Contact Info) Description 09/27/2022 MyChart Message Enc [facility] - [facility] [address] [place] [address] [facility] Provider Air Quality Message Social History Tobacco Use Types Packs/Day Years [...] 01/30/2025 2:30 AM CDT [facility] [address] [place] [address] Som Severino MD [address] [place] [address] 05/25/2025 12:00 PM PACS SPECIALIST Office Visit [facility] [address] [facility] [address] Machelle Coelho ANP-BC [address] [place] [address] documented as of this encounter Visit Diagnoses Not on filedocumented in this encounter Care Teams Orchard Pruner Relationship Specialty Start Date End Date Maryann Triana MD [address] [place] [address] PCP - General INTERNAL MEDICINE 02/13/19 Miller Perez MD [address] [place] [address] [place] New Business Clerk CARDIOVASCULAR DISEASE 02/13/19 07/18/23 Som Severino MD [address] [place] [address] Consulting Physician CLINICAL CARDIAC ELECTROPHYSIOLOGY 05/18/22 Keaton Smith MD [address] [place] [address] INTERVENTIONAL CARDIOLOGY 07/19/2306/06 Machelle Coelho, ANP-BC [address] [place] [address] Nurse Practitioner NURSE PRACTITIONER ADULT HEALTH 07/19/23 documented as of this encounter
--- OUTSIDE RECORDS SUMMARY | 2025-01-06 07:59 | XMS_ITS | Encounter Summary ---
Author Organization [facility] Address [address] [place] [address] Care Team Providers Care Utility Clerk Name Role Phone Maryann Triana MD Primary Care Provider [phone] Miller Perez MD Unavailable [phone] Som Severino MD Unavailable [phone] Keaton Smith MD Unavailable [phone] Machelle Coelho [facility] Unavailable [phone] Encounter Details Date Type Department Care Team (Late st Contact Info) Description 04/23/2023 MyChart Message Enc [facility] Medical Group [facility]pec[facility] [address] [place] [address] Thalia Villalba MD [address] [place] [address] CPAP Equipment for Raz Jason Social History Tobacco Use Types Packs/Day Years [...] 01/30/2025 2:30 AM CDT Allied [facility]/Nurse [facility] [address] [place] [address] Som Severino MD [address] [place], [place] [address] 05/25/2025 12:00 PM BUSINESS CONTINUITY MANAGER Office Visit [facility] [address] [facility] [place] [address] Machelle Coelho ANP-BC [address] [place] [address] documented as of this encounter Visit Diagnoses Not on filedocumented in this encounter Care Teams Utility Clerk Relationship Specialty Start Date End Date Maryann Triana MD [address] [place] [address] PCP - General INTERNAL MEDICINE 02/13/19 Miller Perez MD [address] [place] [address] [place] Parts Counterman CARDIOVASCULAR DISEASE 02/13/19 07/18/23 Som Severino MD [address] [place] [address] Consulting Physician CLINICAL CARDIAC ELECTROPHYSIOLOGY 05/18/22 Keaton Smith MD [address] [place] [address] INTERVENTIONAL CARDIOLOGY 07/19/2306/06 Machelle Coelho ANP-BC [facility] [place] [address] Nurse Practitioner NURSE PRACTITIONER ADULT HEALTH 07/19/23 documented as of this encounter
--- OUTSIDE RECORDS SUMMARY | 2025-01-06 07:59 | XMS_ITS | Encounter Summary ---
Author Organization [facility] Address Critical access hospital[address] [place] [address] Care Team Providers Care Non Acoustic Operator Name Role Phone Maryann Triana MD Primary Care Provider [phone] Miller Perez MD Unavailable [phone] Som Severino MD Unavailable [phone] Keaton Smith MD Unavailable [phone] Machelle Coelho [facility] Unavailable [phone] Encounter Details Date Type Department Care Team (Late st Contact Info) Description 05/17/2021 [facility] [address] [place] [address] Miller Perez MD [address] [place] [address] Social History Tobacco Use Types Packs/Day Years [...] Coronavirus/COVID-19? No / Unsure 05/12/2021 12:29 PM LIFELINE REPRESENTATIVES documented as of this encounter Plan of Treatment Upcoming Encounters Date Type Department Care Team (Late st Contact Info) Description 01/30/2025 2:30 AM CDT Allied Health[facility] [address] [place] [address] Som Severino MD [address] [place] [address] 05/25/2025 12:00 PM LIFELINE REPRESENTATIVES Office Visit [facility] [place] [address] Machelle Coelho [facility]- [address] [place], [place] [address] documented as of this encounter Procedures Procedure Name Priority Date/Time Associated Diagnosis Comments LIPID PANEL Routine 01/22/2021 documented in this encounter Results * LIPID PANEL (01/22/2021) CHOLESTEROL 135 HDL 57 TRIGLYCERIDES 103 NON HDL CHOLESTEROL 78 CHOL/HDL RATIO 2.4 LDL (CALCULATED) 57 VLDL CALCULATION 21 01/22/2021 us Doc [facility] Final Result documented in this encounter Visit Diagnoses Not on filedocumented in this encounter Care Teams Non Acoustic Operator Relationship Specialty Start Date End Date Maryann Triana MD [address] [place] [address] PCP - General INTERNAL MEDICINE 02/13/19 Miller Perez MD [address] [place] [address] [place] Black [employer] White Printer Operator CARDIOVASCULAR DISEASE 02/13/19 07/18/23 Som Severino MD [address] [place], [place] [address] Consulting Physician CLINICAL CARDIAC ELECTROPHYSIOLOGY 05/18/22 Keaton Smith MD [address] [place], [place] [address] INTERVENTIONAL CARDIOLOGY 07/19/2306/06 Machelle Coelho, [facility]- [address] [place] [address] Nurse Practitioner NURSE PRACTITIONER ADULT HEALTH 07/19/23 documented as of this encounter
--- OUTSIDE RECORDS SUMMARY | 2025-01-06 07:59 | XMS_ITS | Encounter Summary ---
Author Organization [facility] Address [address] [place] [address] Care Team Providers Care Childrens Club Attendant Name Role Phone Maryann Triana MD Primary Care Provider [phone] Som Severino MD Unavailable [phone] Keaton Smith MD Unavailable [phone] Machelle Coelho [facility] Unavailable [phone] Reason for Visit * Reason Onset Date Comments Follow Up 09/03/2023 CPAP Encounter Details Date Type Department Care Team (Late st Contact Info) Description 09/03/2023 MyChart Message Enc [facility] Medical Group Mult[facility]pec[facility] [address] [place] [address] Thalia Villalba MD [address] [place] [address] CPAP Social History Tobacco Use Types Packs/Day Years [...] Progress Notes * Donavon Short MA - 10/02/2023 8:26 AM CDT Are you going to addend last ovn to state pt needs home sleep study, then ordering sleep study. Hasto have f2f stating the above per medicare guidelines. * Donavon Short MA - 09/27/2023 3:55 PM CDT Pt needs to have a new dx study, please place order * Alexandro Powers - 09/25/2023 11:10 AM CDT Caller/Facility/Doctor name: Hayley Note: Calling to follow up on whether the patient needs another sleep study or not for cpap. Please call back to advise SPHAREShart: N/A Call back/Ext. #: [phone] * Melody Chang - 09/20/2023 12:49 PM CDT Caller/Facility/Doctor name: Hayley Note: Calling to follow up SPHAREShart: Yes. I offered the usage of [employer] to the caller & let the caller know this message will be sent over to the nurse and they will reach out to the patient through [employer].Caller voiced understanding. Call back/Ext. #: [phone] * Donavon Short MA - 09/04/2023 9:41 AM CDT Pt needs to have a new dx study, please place order documented in this encounter Plan of Treatment Upcoming Encounters Date Type Department Care Team (Late st Contact Info) Description 01/30/2025 2:30 AM CDT Allied Health/Nurse [facility] [address] [place] [address] Som Severino MD [address] [place] [address] 05/25/2025 12:00 PM COACH PROFESSIONAL ATHLETES [facility] [address] [facility] [place] [address] Machelle Coelho ANP-BC [address] [place], [place] [address] documented as of this encounter Visit Diagnoses Not on filedocumented in this encounter Care Teams Childrens Club Attendant Relationship Specialty Start Date End Date Maryann Triana MD [address] [place] [address] PCP - General INTERNAL MEDICINE 02/13/19 Som Severino MD [address] [place] [address] Consulting Physician CLINICAL CARDIAC ELECTROPHYSIOLOGY 05/18/22 Keaton Smith MD [address] [place] [address] INTERVENTIONAL CARDIOLOGY 07/19/2306/06 Machelle Coelho ANP-BC [address] [place] [address] [id number] Nurse Practitioner NURSE PRACTITIONER ADULT HEALTH 07/19/23 documented as of this encounter
--- OUTSIDE RECORDS SUMMARY | 2025-01-06 07:59 | XMS_ITS | Encounter Summary ---
Author Organization [facility] Address [address] [place] [address] Care Team Providers Care Water/Wastewater Project Engineer Name Role Phone Maryann Triana MD Primary Care Provider [phone] Miller Perez MD Unavailable [phone] Som Severino MD Unavailable [phone] Keaton Smith MD Unavailable [phone] Machelle Coelho [facility] Unavailable [phone] Encounter Details Date Type Department Care Team (Late st Contact Info) Description 05/17/2022 Hospital Orders Only [facility] Anesthesia [address] [place] [address] Kylee Coy RN Anesthesia Record Procedure Summary Procedure Name Responsible Anesthesiologist Anesthesia Start Time Anesthesia Stop Time XA AFLUTTER ABLATION Yana Gonsalez MD 05/18/22 0804 05/18/22 1025 Events Date Time Event Comment 05/18/2022 0729 0804 An Start Patient ID and consent checked and patient reassessed. 0804 An Start Data 0813 AN Immediate Reassess The pa tient was reevaluated immediately before sedation or regional anesthesia. 0813 Face Mask Applied 0813 Anesthesia Ready 1022 an stop data 1025 Post Anesthetic Care Handoff I completed my handoff to the receiving nurse during which we: 1. Identified the patient 2. Identified the responsible provider 3. Reviewed the pertinent medical history 4. Discussed the surgical course 5. Reviewed intra-op anesthesia management and issues during anesthesia 6. Set expectations for post-procedure period 7. Allowed opportunity for questions and acknowledgement of understanding. 1025 An Stop Meds * Agents No agents on file. * Blood No blood administrations on file. Lines, Drains, and Airways Type Details Placement Removal Supraglottic Airway Placement Date: 05/18/22; Placement Time: 812; Airway Device: Facemask 05/18/22 08 by Kathi Barrera CRNA Peripheral IV Placement Date: 05/18/22; Placement Time: 0640; Placed Outside of This Facility?: No; Size: 20 G; Orientation: Left; Location: Hand; Site Prep: Chlorhexidine; Local Anesthetic: None; Inserted By: Patricia SINGH; Insertion attempts: 1; Ultrasound-guided Placement?: No; Patient Tolerance: Tolerated well; Removal Date: 05/18/22; Removal Time: 143; Removal Reason: Patient Discharged 05/18/22 0640 by Rufus Paredes RN 05/18/22 143 by Annetta Bah RN Peripheral IV Placement Date: 05/18/22; Placement Time: 08; Placed Outside of This Facility?: No; Size: 20 G; Orientation: Right; Location: Hand; Site Prep: Chlorhexidine; Local Anesthetic: None; Inserted By: Carlos A RAMIREZ; Insertion attempts: 2; Ultrasound-guided Placement?: No; Patient Tolerance: Tolerated well; Removal Date: 05/18/22; Removal Time: 1437; Removal Reason: Patient Discharged 05/18/22 0830 by Kathi Barrera CRNA 05/18/221436 by Annetta Bah RN documented in this encounter Social History Tobacco Use Types Packs/Day Years [...] suspected to have Coronavirus/COVID-19? No / Unsure 05/18/2022 6:15 AM CURATORIAL ASSISTANT documented as of this encounter Functional Status * Calculated C-SSRS Risk Score (Lifetime/Recent) Answer Date of Assessment Author Status No Risk Indicated 05/18/2022 6:21 AM Kristel Puente RN Active * [place] Suicide Severity Rating Scale (Screener/Recent Self-Report) Question Answer Date of Assessment Author Status 1. Wish to be (Past 1 Month) No 05/18/2022 6:21 AM Rufus Puente RN Acti ve 2. Non-Specific Active Suicidal Thoughts (Past 1 Month) No 05/18/2022 6:21 AM Rufus Puente RN Acti ve 6. Suicidal Behavior (Lifetime) No 05/18/2022 6:21 AM Rufus Puente RN Acti ve documented as of this encounter Plan of Treatment Upcoming Encounters Date Type Department Care Team (Late st Contact Info) Description 01/30/2025 2:30 AM CDT [facility] [address] [place] [address] Som Severino MD [address] [place] [address] 05/25/2025 12:00 PM CURATORIAL ASSISTANT [facility] [place] [address] Machelle Coelho, [address] [address] documented as of this encounter Visit Diagnoses Not on filedocumented in this encounter Care Teams Water/Wastewater Project Engineer Relationship Specialty Start Date End Date Maryann Triana MD [address] [place] [address] PCP - General INTERNAL MEDICINE 02/13/19 Miller Perez MD [address] [place] [address] Calamus Yam Curer CARDIOVASCULAR DISEASE 02/13/19 07/18/23 Som Severino MD [address] [place] [address] Consulting Physician CLINICAL CARDIAC ELECTROPHYSIOLOGY 05/18/22 Keaton Smith MD [address] [place] [address] INTERVENTIONAL CARDIOLOGY 07/19/2306/06 Machelle Coelho, [facility]- [address] [place] [address] Nurse Practitioner NURSE PRACTITIONER ADULT HEALTH 07/19/23 documented as of this encounter
== END 2025-01-06 07:50 | disposition home or self-care (01) ==
LOC: CHSIMG 07:52
PROVIDERS: PCP Internal Medicine; Visit Provider Internal Medicine
DX: Z13.6 Encounter for screening for cardiovascular disorders (principal); Z87.891 Personal history of nicotine dependence
CPT/HCPCS: 76775